=== PATIENT | female | born 1980 | race Caucasian/White ===

== ENCOUNTER 2018-05-21 15:48 | Outpatient (REF) | payer MEDICAID, SELFPAY ==
--- NOTE | 2018-05-21 15:20 | PAPFT_PTH ---
PATIENT: Cristina Johns LOC: [facility] U#:[id number] AGE/SX: 38/F ROOM: RE05/21/[address]: Malena Varghese : 1980 BED: DIS: 05/21/2018 SPEC #: [id number] RECD: 05/21/18 18:07 STATUS: NILDA REKatiana #: [id number] BEL: 05/21/18 15:[address]: Malena Varghese DEPT: [facility] Cytology RECD BY: Liseth Rodrigues ENTERED: 05/21/18 18:07 SP TYPE: PAPFT MARCE DR: Charlotte Woodruff APRN Tissues: 1 - CX/ENDOCX FOR PAP SMEARS Procedures: PAP THIN PREP/UVM Screening HPV DNA PROBE Comments: [id number]
== END 2018-05-21 16:08 ==
LOC: LBN 15:48
PROVIDERS: PCP Nurse Practitioner; Visit Provider Obstetrics & Gynecology Gynecology
DX: Z12.4 Encounter for screening for malignant neoplasm of cervix (principal); Z11.51 Encounter for screening for human papillomavirus (HPV)
CPT/HCPCS: 88142; 87624

== ENCOUNTER 2018-07-04 12:41 | Outpatient (REF) | payer MEDICAID, SELFPAY ==
--- NOTE | 2018-07-04 10:40 | ENDO_PTH ---
PATIENT: Cristina Johns LOC: [facility] U#:[id number] AGE/SX: 38/F ROOM: RE07/04/[address]: Malena Varghese : 1980 BED: DIS: 07/04/2018 SPEC #: [id number] RECD: 07/04/18 12:46 STATUS: NILDA REKatiana #: [id number] BEL: 07/04/18 10:[address]: Malena Varghese DEPT: Surgical Specimen RECD BY: Liseth Rodrigues ENTERED: 07/04/18 12:46 SP TYPE: Endo OTHR DR: Charlotte Woodruff APRN Tissues: 1 - ENDOCERVICAL BX/CURRETTE 2 - CERVICAL BIOPSY Procedures: GROSS AND MICRO LEVEL 4 Comments: [id number]
== END 2018-07-04 13:01 ==
LOC: LBN 12:41
PROVIDERS: PCP Nurse Practitioner; Visit Provider Obstetrics & Gynecology Gynecology
DX: N88.8 Other specified noninflammatory disorders of cervix uteri; R87.810 Cervical high risk human papillomavirus (HPV) DNA test positive
CPT/HCPCS: 88305

== ENCOUNTER 2019-01-16 08:53 | Outpatient (CLI) | payer MEDICAID, SELFPAY ==
--- NOTE | 2019-01-16 08:57 | MERGE_ITS ---
*[facility]* *[facility]* [address] [place] [address] Date of study: 01/16/2019 Transthoracic Echocardiography M-mode, complete 2D, complete spectral Doppler, and color Doppler *STUDY CONCLUSIONS* Summary: 1. Left ventricle: The cavity size was normal. Wall thickness was normal. Systolic function was normal. The estimated ejection fraction was 55-60%. Wall motion was normal; there were no regional wall motion abnormalities. 2. Right ventricle: The cavity size was normal. Wall thickness was normal. Systolic function was normal. *PATIENT PRESENTATION* Height: 167.6cm ((66in) ) S/D Pressure: 130 / 79 Weight: 93.9kg ((206.6lb) ) BSA: 2.13m^2 Test start time: 09:00 AM. Test stop time: 10:00 AM. PERFORMING Unknown PERFORMING [facility] ORDERING Charlotte Woodruff REFERRING Charlotte Woodruff LONG WINDER TENDER Goldie Figueredo *PROCEDURE DATA* Procedure information: This study was interpreted by [facility]. Pertinent images and digital data are archived for permanent storage and are available for subsequent review. No prior study was available for comparison. Study status: Routine. Transthoracic echocardiography. M-mode, complete 2D, complete spectral Doppler, and color Doppler. A Transthoracic Echocardiogram was performed. Scanning was performed from the parasternal, apical, subcostal, and suprasternal notch acoustic windows. Images were obtained using an Xpreso 2000 cardiac ultrasound machine. Study completion: The patient tolerated the procedure well. History: PMH: Palpitations. *CARDIAC ANATOMY* Left ventricle: The cavity size was normal. Wall thickness was normal. Systolic function was normal. The estimated ejection fraction was 55-60%. Wall motion was normal; there were no regional wall motion abnormalities. Aortic valve: Trileaflet; normal thickness leaflets. Mobility was not restricted. Doppler: Transvalvular velocity was within the normal range. There was no stenosis. There was no significant regurgitation. VTI ratio of LVOT to aortic valve: 0.84. Valve area (VTI): 2.2cm^2. Indexed valve area (VTI): 1cm^2/m^2. Peak velocity ratio of LVOT to aortic valve: 0.8. Valve area (Vmax): 2.1cm^2. Indexed valve area (Vmax): 1cm^2/m^2. Mean velocity ratio of LVOT to aortic valve: 0.74. Valve area (Vmean): 1.9cm^2. Indexed valve area (Vmean): 0.9cm^2/m^2. Mean gradient (S): 2.6mm Hg. Peak gradient (S): 4.6mm Hg. Aorta: Aortic root: The aortic root was normal in size. Ascending aorta: The ascending aorta was normal in size. Mitral valve: Structurally normal valve. Mobility was not restricted. Doppler: Transvalvular velocity was within the normal range. There was no evidence for stenosis. There was no significant regurgitation. Valve area by pressure half-time: 3.5cm^2. Indexed valve area by pressure half-time: 1.7cm^2/m^2. Left atrium: The atrium was normal in size. Right ventricle: The cavity size was normal. Wall thickness was normal. Systolic function was normal. Pulmonic valve: Poorly visualized. Doppler: Transvalvular velocity was within the normal range. There was no evidence for stenosis. There was mild regurgitation. Peak gradient (S): 2.3mm Hg. Tricuspid valve: Structurally normal valve. Doppler: Transvalvular velocity was within the normal range. There was no evidence for stenosis. There was trivial regurgitation. Pulmonary artery: Poorly visualized. Pulmonary systolic pressure was within the normal range. Right atrium: The atrium was normal in size. Pericardium: There was no pericardial effusion. Systemic veins: Inferior vena cava: The vessel was normal in size. Measurements Left ventricle Value Reference LV ID, ED, PLAX 4.8 cm 3.5 - 6.0 LV ID, ES, PLAX 3.4 cm 2.1 - 4.0 LV PW thickness, ED, PLAX 0.9 cm LV end-diastolic volume, 1-p A2C 103 ml LV ejection fraction, 1-p A2C 61 % LV end-diastolic volume, 1-p A4C 85 ml LV ejection fraction, 1-p A4C 55 % LV e', lateral 0.164 m/sec LV E/e', lateral 4 LV e', medial 0.082 m/sec LV E/e', medial 7 LV e', average 0.123 m/sec LV E/e', average 5 Ventricular septum Value Reference IVS thickness, ED, PLAX 0.9 cm LVOT Value Reference LVOT ID, A-P 1.8 cm LVOT area 2.6 cm^2 LVOT peak velocity, S 0.86 m/sec LVOT mean velocity, S 0.58 m/sec LVOT VTI, S 17.7 cm LVOT peak gradient, S 3 mm Hg LVOT mean gradient, S 1.5 mm Hg Stroke volume (SV), LVOT DP 47 ml Stroke index (SV/bsa), LVOT DP 22 ml/m^2 Aortic valve Value Reference Aortic valve peak velocity, S 1.1 m/sec Aortic valve mean velocity, S 0.78 m/sec Aortic valve VTI, S 21.0 cm Aortic mean gradient, S 2.6 mm Hg Aortic peak gradient, S 4.6 mm Hg VTI ratio, LVOT/AV 0.84 Aortic valve area, VTI 2.2 cm^2 Velocity ratio, peak, LVOT/AV 0.8 Aortic valve area, peak velocity 2.1 cm^2 Velocity ratio, mean, LVOT/AV 0.74 Aortic valve area, mean velocity 1.9 cm^2 Aortic valve area/bsa, mean velocity 0.9 cm^2/m^2 Aorta Value Reference Aortic root ID, ED 3.0 cm Ascending aorta ID, A-P, S 2.6 cm Left atrium Value Reference LA ID, A-P, ES 2.5 cm LA ID/bsa, A-P 1.2 cm/m^2 <=2.2 LA area, ES, A4C 16 cm^2 8.8 - 23.4 LA area, ES, A2C 15 cm^2 LA volume/bsa, S 21 ml/m^2 LA volume, ES, 2-p 40 ml LA volume/bsa, ES, 2-p 19 ml/m^2 LA/aortic root ratio 0.83 Mitral valve Value Reference Mitral E-wave peak velocity 0.58 m/sec Mitral A-wave peak velocity 0.42 m/sec Mitral deceleration time 215 ms 150 - 230 Mitral pressure half-time 62 ms Mitral E/A ratio, peak 1.38 Mitral valve area, PHT, DP 3.5 cm^2 Pulmonary arteries Value Reference PA pressure, S, DP 22 mm Hg <=30 Tricuspid valve Value Reference Tricuspid regurg peak velocity 1.9 m/sec Tricuspid peak RV-RA gradient 14.2 mm Hg Right atrium Value Reference RA area, ES, A4C 12.9 cm^2 8.3 - 19.5 Systemic veins Value Reference Estimated CVP 10 mm Hg Right ventricle Value Reference RV pressure, S, DP 24 mm Hg <=30 Pulmonic valve Value Reference Pulmonic peak gradient, S 2.3 mm Hg Legend: (L) and (H) anton values outside specified reference range. I have personally reviewed the images and have reviewed and edited the reported findings. Electronically signed by Lesvia Vázquez 01/17/2019 13:27
== END 2019-01-16 09:13 ==
PROVIDERS: PCP Nurse Practitioner; Visit Provider Nurse Practitioner
DX: R00.2 Palpitations (principal); I10 Essential (primary) hypertension
CPT/HCPCS: 93306

== ENCOUNTER 2019-03-25 01:50 | Outpatient (CLI) | payer MEDICAID, SELFPAY ==
--- NOTE | 2019-04-28 12:31 | CER_ITS ---
DATE OF DICTATION: April 27, 2019 [employer] MONITOR REPORT MONITOR IN PLACE: March 25 - April 23, 2019 Baseline rhythm sinus. No atrial fibrillation identified. 1% ventricular ectopy. 26 stable events recorded, no critical, no serious events recorded. Automatically-detected events: 20. All occurring during sinus rhythm +/- single PVC. No significant bradycardia. EVENT SUMMARY: Flutter or skipped beats noted multiple times during sinus rhythm +/- single PVC.
== END 2019-03-25 02:10 ==
PROVIDERS: PCP Nurse Practitioner; Visit Provider Nurse Practitioner
DX: R00.2 Palpitations (principal); I49.3 Ventricular premature depolarization
CPT/HCPCS: 93270

== ENCOUNTER 2020-01-27 09:45 | Outpatient (REF) | payer MEDICAID, SELFPAY ==
--- NOTE | 2020-01-27 09:10 | PAPFT_PTH ---
PATIENT: Cristina Johns LOC: [facility] U#:[id number] AGE/SX: 39/F ROOM: RE01/27/[address]: Fauzia Hilton NP : 1980 BED: DIS: 01/27/2020 SPEC #: [id number] RECD: 01/27/20 12:53 STATUS: NILDA REKatiana #: [id number] BEL: 01/27/20 09:[address]: Fauzia Hilton NP DEPT: [facility] Cytology RECD BY: Liseth Rodrigues ENTERED: 01/27/20 12:54 SP TYPE: PAPFT MARCE DR: Charlotte Woodruff APRN Tissues: 1 - CX/ENDOCX FOR PAP SMEARS Procedures: PAP THIN PREP/UVM Screening HPV DNA PROBE Comments: [id number]
== END 2020-01-27 10:05 ==
LOC: LBN 09:45
PROVIDERS: PCP Nurse Practitioner; Visit Provider Nurse Practitioner Women's Health
DX: Z12.4 Encounter for screening for malignant neoplasm of cervix (principal); Z11.51 Encounter for screening for human papillomavirus (HPV)
CPT/HCPCS: 88142; 87624

== ENCOUNTER 2020-03-08 08:50 | Outpatient (CLI) | payer MEDICAID, SELFPAY ==
[2020-03-10 15:35] LABS: SARS-CoV-2 RNA Undetected (Undetected)
== END 2020-03-08 09:10 ==
PROVIDERS: PCP Nurse Practitioner; Visit Provider Nurse Practitioner Family
DX: Z11.59 Encounter for screening for other viral diseases (principal)
CPT/HCPCS: U0003

== ENCOUNTER 2021-02-01 09:48 | Outpatient (REF) | payer MEDICAID, SELFPAY ==
--- NOTE | 2021-02-01 08:45 | PAPFT_PTH ---
PATIENT: Cristina Johns [facility] U[id number] AGE/SX: 40/F ROOM: RE02/01/[address]: Fauzia Hilton NP : 1980 BED: DIS: 02/01/2021 SPEC #: [id number] RECD: 02/01/21 12:48 STATUS: NILDA COVARRUBIAS #: [id number] BEL: 02/01/21 08:[address]: Fauzia Hilton NP DEPT: [facility] Cytology RECD BY: Liseth Rodrigues ENTERED: 02/01/21 12:49 SP TYPE: PAPFT OTHR DR: Charlotte Woodruff APRN Tissues: 1 - CX/ENDOCX FOR PAP SMEARS Procedures: PAP THIN PREP/UVM Screening HPV DNA PROBE Comments: [id number]
== END 2021-02-01 09:49 | disposition home or self-care (01) ==
LOC: NCHCN 09:48
PROVIDERS: PCP Nurse Practitioner; Visit Provider Nurse Practitioner Women's Health
DX: Z12.4 Encounter for screening for malignant neoplasm of cervix (principal); Z11.51 Encounter for screening for human papillomavirus (HPV); Z87.42 Personal history of other diseases of the female genital tract
CPT/HCPCS: 88142; 87624

== ENCOUNTER 2021-02-04 22:10 | Emergency (ER) | payer MEDICAID, SELFPAY ==
--- NOTE | 2021-02-04 22:00 | RT.EKG_ITS ---
APPROVED REPORT Exam: Resting ECG Reason for Exam: Syncope Patient Location: E HR:85 bpm ECG Measurements Heart Rate 85 AXIS PA 184 P 50 QRSd 118 QRS 47 QT 385 T 46 QTc 456 Conclusion Sinus rhythm...normal P axis, V-rate 60- 99 Incomplete right bundle branch block...QRSd >112, terminal axis(90,270) Physician: no stemi
[2021-02-04 22:17] VITALS: BP 128/84; PULSE 84; RESP 15; TEMP 36.4; O2SAT 95
--- NOTE | 2021-02-04 22:24 | W.ED.GENAD ---
Discharge Plan Disposition Patient Disposition: HOME Condition: Stable Discharge Details Clinical Impression: Syncope Primary Care Provider: Charlotte Woodruff ED Provider: Josseline Roberson Home Meds and New Rx's Prescriptions: Continued omeprazole 40 mg capsule,delayed release(DR/EC) 40 mg PO DAILY PRNRF: 0 propranolol 10 mg tablet 10 mg PO BID PRN (Reason: palpitations) Qty: 60 RF: 4 albuterol sulfate 90 mcg/actuation HFA aerosol inhaler 2 puff IH QID PRN (Reason: shortness of breath or wheezing) Qty: 18 RF: 3 bupropion HCl [Wellbutrin SR] 150 mg tablet sustained-release 12 hr 150 mg PO DAILY Qty: 90 RF: 3 sertraline [Zoloft] 100 mg tablet 150 mg PO DAILY Qty: 135 RF: 3 lorazepam 0.5 mg tablet 0.5 mg PO BID PRN (Reason: anxiety) Qty: 30 RF: 2 Discharge Instructions Instructions: Syncope (ED) Additional Instructions: Follow up with primary care provider in 3-5 days. Return to ED sooner if any worsening or concerns. Increase oral fluids. Return to the ED for any chest pain, repeat syncopal or fainting episodes, shortness of breath, sweating nausea vomiting, fever or any concerns. Referrals: Charlotte Woodruff SOLAR POOL HEATING INSTALLER [Primary Care Provider] - Medical Decision Making 40-year-old female presents to the ER via EMS status post syncopal episode while at a local restaurant earlier tonight. Patient she remembers getting weak and hot standing up to take off her sweater and waking up on the floor. She [facility] [place] [facility] She did have 2 beers. She does endorse history of anxiety and depression and did take her normal medications today she denies any drugs. She is a non-smoker. She denies any chest pain, shortness of breath, headache no neck pain no back pain. She states she was nauseous and had a headache earlier today but that has since resolved. She has no other complaints or associated symptoms at this time At this time cardiac work-up ordered including basic labs, EKG and troponin I liter normal saline. EKG was reviewed by Dr. Keny Castrejon DO ER attending, please see his official report and review, no STEMI. No old EKG available for review Patient work-up has been largely unremarkable troponin is within normal limits. No evidence for leukocytosis sodium 139 potassium 3.2 chloride 103 glucose 142. Patient reevaluation she has no complaints at this time. She has received approximately 500 cc normal Orthostatics completed by staff midwife/apprenticeship director. Heart rate goes up slightly to 106 no significant drop in blood pressure. Will continue to infuse the rest of the liter of saline and plan for discharge home. Patient verbalized understanding and is in agreement with this plan. I do suspect dehydration at this point. Instructed to follow-up with PCP increase oral fluids. Patient yulissa hemodynamically stable throughout stay alert and oriented no focal neuro deficits. This text was generated using Agile Systemsation system, please disregard any oddities of phrase or misspellings. HPI General Mode of arrival: EMS. Date/Time Provider Initiated Documentation: 02/04/21 22:11. Limitations to Documentation: no limitations. Information obtained by: patient, EMS and RN notes reviewed. HPI Narrative: 40-year-old female presents to the ER via EMS status post syncopal episode while at a local restaurant earlier tonight. Patient she remembers getting weak and hot standing up to take off her sweater and waking up on the floor. She denies any previous episodes prior to tonight. She did have 2 beers. She does endorse history of anxiety and depression and did take her normal medications today she denies any drugs. She is a non-smoker. She denies any chest pain, shortness of breath, headache no neck pain no back pain. She states she was nauseous and had a headache earlier today but that has since resolved. She has no other complaints or associated symptoms at this time Related Data Home Medications Medication Instructions Recorded Confirmed albuterol sulfate 90 mcg/actuation 2 puff IH QID PRN #18 gm 10/20/18 01/27/20 aerosol inhaler propranolol 10 mg tablet 10 mg PO BID PRN #60 tab-cap 01/08/19 01/27/20 bupropion HCl 150 mg tablet,12 hr 150 mg PO DAILY #90 tab-cap 03/03/20 sustained-release sertraline 100 mg tablet 150 mg PO DAILY #135 tab-cap 07/27/20 lorazepam 0.5 mg tablet 0.5 mg PO BID PRN #30 tab-cap 10/17/20 omeprazole 40 mg capsule,delayed 40 mg PO DAILY PRN tab-cap 02/01/21 release Previous Rx's Medication Instructions Recorded albuterol sulfate 90 mcg/actuation 2 puff IH QID PRN #18 gm 10/20/18 aerosol inhaler propranolol 10 mg tablet 10 mg PO BID PRN #60 tab-cap 01/08/19 bupropion HCl 150 mg tablet,12 hr 150 mg PO DAILY #90 tab-cap 03/03/20 sustained-release sertraline 100 mg tablet 150 mg PO DAILY #135 tab-cap 07/27/20 lorazepam 0.5 mg tablet 0.5 mg PO BID PRN #30 tab-cap 10/17/20 Allergies Allergy/AdvReac Type Severity Reaction Status Date / Time sulfamethoxazole Allergy Intermediate Swelling, Unverified 02/01/21 08:28 [From Bactrim] itchy rash trimethoprim [From Bactrim] Allergy Intermediate Swelling, Unverified 02/01/21 08:28 itchy rash General Stated Complaint: Dizzy/Sync MITCHELL: 3 Review of Systems Narrative: Constitutional: Negative for weight loss, alert and oriented, well groomed, normal body habitus, appears comfortable. HEENT: Denies blurry vision, nasal discharge, sore throat, trouble swallowing. Reports headache earlier today none upon arrival. Chest: Denies chest pain, palpitations, irregular rhythm, hypertension. Respiratory: Denies Shortness of breath, cough, hemoptysis. GI: Denies abdominal pain, vomiting, diarrhea, constipation. Positive nausea : Denies dysuria, hematuria, flank pain, rectal bleeding. Neuro: Denies blurry vision, weakness, syncope, or facial numbness. Positive syncopal episode prior to arrival. Hematologic: Denies easy bruising, intolerance to heat or cold, hair loss. [facility] Medical History Depression with anxiety/panic attack component. 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 2020 -HPV Family History Father Hyperlipidemia Hypertension Brother No problems noted. Maternal Grandmother Diabetes Paternal Grandmother Colon cancer Social History Smoking/Tobacco Use Status: Never Smoking risk assessment performed?: Yes Alcohol Intake: current Alcohol Intake frequency: a few times a month Substance use type: does not use Household members: children and other Details: Sae Garcia Number of Children: 3 current occupation: [employer] Pets and animals: Yes (Dog. Sylvester) Sexually active: Yes (condoms for BC.) What type of physical activity do you participate in: other Details: sylvia and yoga Frequency: 5-6 times per week Do you feel safe at home: Yes Do you feel safe in your relationship?: Yes Additional Social history: JESS Burton. Works at [employer] Female Reproductive History Menstrual control method: condoms History History 3 Para 3 Hx # Term Pregnancies 3 Multiple births Hx # Pregnancies Ectopic pregnancies AB induced Hx Number of Living Children 3 AB spontaneous Exam Narrative Exam Narrative: Constitutional: Alert and oriented x3. Appears stated age. Normal body habitus. Head: Normocephalic, no trauma. Eyes: Pupils PERRLA, Red reflex noted, EOM's intact. Eyelids symmetrical without lesions, discharge, or swelling. ENT: Bilateral TM's WNL, External ear normal to inspection, no mastoid TTP, swelling, or erythema, Nasal turbinates WNL, no nasal discharge. Normal dentition, Posterior pharynx WNL, no exudate. Chest: RRR, Normal S1, S2, distal pulses intact. Resp: Lungs clear to auscultation bilaterally, no wheezes, rales, or rhonchi. Abdomen: Soft, nondistended, nontender to palpation all 4 quadrants. Musculoskeletal: Unable to assess gait 5/5 strength to all four extremities. Skin: No suspicious rashes or lesions. Capillary refill less than 2 sec. Neurologic: Cranial nerves II-XII intact. Alert and oriented x 3. DTR's intact. Hematologic/Lymphatic: No ecchymosis, no lymphadenopathy. Course Vital Signs Vital signs: Vital Signs Temperature 36.4 C L 02/04/21 22:17 Pulse 84 02/04/21 22:17 Respiratory Rate 15 02/04/21 22:17 Blood Pressure 128/84 02/04/21 22:17 Pulse Oximetry 95 02/04/21 22:17 Temperature 36.4 C L 02/04/21 22:17 Temperature Source Tympanic 02/04/21 22:17 Pulse 84 02/04/21 22:17 Respiratory Rate 15 02/04/21 22:17 Blood Pressure 128/84 02/04/21 22:17 Blood Pressure Position Standing 02/04/21 22:17 Pulse Oximetry 95 02/04/21 22:17 Oxygen Delivery Method Room Air 02/04/21 22:17 Oxygen Flow Rate 0 02/04/21 22:17 Pain Level 0 02/04/21 22:17
[2021-02-04] MEDS: Normal Saline 1,000 ML 1000 ML IV (22:56)
[2021-02-04 22:58] LABS: Abs Immature Grans 0.02 10^3/uL (0.0-0.06); Absolute Basophil Count 0.05 10^3/uL (0.0-0.2); Absolute Lymphocyte Count 2.76 10^3/uL (1.2-3.4); Absolute Monocyte Count 0.69 10^3/uL (0.1-0.8); Basophils % 0.6; Eosinophils % 2.3; HGB 12.4 g/dL (11.2-15.7); Immature Grans % 0.2; Lymphocytes % 31.3; MCH 28.3 pg (27.0-33.0); MCHC 32.6 % (32.0-36.0); MCV 86.8 fL (80-95); MPV 10.1 fL (8.0-11.0); Monocytes % 7.8; Neutrophils % 57.8; Nucleated RBC 0 %; Platelet Count 248 10^3/uL (130-400); RBC 4.38 10^6/uL (3.93-5.22); RDW 13.2 % (11.7-14.6); RDW-SD 41.2 fL; WBC 8.82 10^3/uL (4.4-10.8)
[2021-02-04 23:17] LABS: ALT 25 U/L (14-59); AST 21 U/L (15-37); Albumin 3.7 g/dL (3.4-5.0); Alkaline Phosphatase 77 U/L (46-116); Anion Gap 11.8 mmol/L (3-11); BUN 9 mg/dL (7-18); Bilirubin, Total 0.4 mg/dL (0.2-1.0); CO2 24.2 mmol/L (21.0-32.0); CREATININE 0.9 mg/dL (0.55-1.02); Calcium 9.1 mg/dL (8.5-10.1); Chloride 103 mmol/L (98-107); Glucose 142 mg/dL (74-106); Potassium 3.2 mmol/L (3.5-5.1); Sodium 139 mmol/L (136-145); Total Protein 7.5 g/dL (6.4-8.2); Troponin I < 0.05 ng/mL (<0.06)
[2021-02-04 23:34] VITALS: BP 126/85; BP 136/79; BP 140/82; PULSE 107; PULSE 88; PULSE 94
== END 2021-02-05 00:05 | disposition home or self-care (01) ==
PROVIDERS: Emergency Provider Registered Nurse Emergency; PCP Nurse Practitioner
DX: R55 Syncope and collapse (principal)
CPT/HCPCS: 36415; 80053; 93005; 96360; 99284; 84484; 85025; 93010

== ENCOUNTER 2021-02-10 00:58 | Outpatient (RCR) | payer MEDICAID, SELFPAY ==
--- NOTE | 2021-02-10 13:00 | HOLTER_ITS ---
APPROVED REPORT Conclusion This is a 24-hour monitor ordered for indication of syncope. The patient was in normal sinus rhythm recording with an average heart rate of 95 bpm. There are no episodes of ventricular tachycardia nor any episodes of supraventricular tachycardia. There were rare PVCs and no PACs. There were no episodes of atrial fibrillation, no pauses greater than 3 seconds and no evidence of hi gh degree heart block. There was 1 patient triggered event reported as shortness of breath x10 seconds. The patient was in normal sinus rhythm at this time without any ectopy.
== END 2021-03-04 23:59 | disposition home or self-care (01) ==
LOC: RT 00:58
PROVIDERS: PCP Nurse Practitioner; Visit Provider Nurse Practitioner
DX: R55 Syncope and collapse (principal)
CPT/HCPCS: 93225; 93226

== ENCOUNTER 2021-06-05 08:43 | Outpatient (REF) | payer MEDICAID, SELFPAY ==
[2021-06-05 14:32] LABS: HCT 39.5 % (36.0-46.0); HGB 12.6 g/dL (11.2-15.7); MCH 27.6 pg (27.0-33.0); MCHC 31.9 % (32.0-36.0); MCV 86.6 fL (80-95); MPV 10.8 fL (8.0-11.0); Platelet Count 286 10^3/uL (130-400); RBC 4.56 10^6/uL (3.93-5.22); RDW 13.3 % (11.7-14.6); RDW-SD 41.4 fL; WBC 8.16 10^3/uL (4.4-10.8)
[2021-06-05 14:40] LABS: ALT 30 U/L (14-59); AST 18 U/L (15-37); Albumin 3.9 g/dL (3.4-5.0); Alkaline Phosphatase 81 U/L (46-116); Anion Gap 10.1 mmol/L (3-11); BUN 12 mg/dL (7-18); Bilirubin, Total 0.3 mg/dL (0.2-1.0); CO2 25.9 mmol/L (21.0-32.0); CREATININE 0.8 mg/dL (0.55-1.02); Calcium 8.8 mg/dL (8.5-10.1); Calculated LDL 116 mg/dL (<100); Chloride 104 mmol/L (98-107); Cholesterol 195 mg/dL (<200); Glucose 95 mg/dL (74-106); HDL Cholesterol 43 mg/dL (40-60); Potassium 4.3 mmol/L (3.5-5.1); Sodium 140 mmol/L (136-145); Total Protein 7.1 g/dL (6.4-8.2); Triglyceride 181 mg/dL (<150)
[2021-06-05 14:56] LABS: Hemoglobin A1C 5.4 % (<5.7)
== END 2021-06-05 08:44 | disposition home or self-care (01) ==
LOC: LBN 08:43
PROVIDERS: PCP Nurse Practitioner; Referring Provider Nurse Practitioner; Visit Provider Nurse Practitioner
DX: Z13.220 Encounter for screening for lipoid disorders; E66.3 Overweight; Z83.3 Family history of diabetes mellitus; E11.9 Type 2 diabetes mellitus without complications
CPT/HCPCS: 80053; 80061; 85027; 83036

== ENCOUNTER 2021-06-06 09:10 | Outpatient (CLI) | payer MEDICAID, SELFPAY ==
[2021-06-07 05:39] LABS: COVID-19 RT-PCR UVMMC Result Positive (Negative)
== END 2021-06-06 09:11 | disposition home or self-care (01) ==
PROVIDERS: PCP Nurse Practitioner; Visit Provider Nurse Practitioner
DX: Z20.822 Contact with and (suspected) exposure to COVID-19 (principal)
CPT/HCPCS: U0003

== ENCOUNTER 2021-06-08 02:32 | Outpatient (CLI) | payer MEDICAID, SELFPAY ==
[2021-06-08 11:11] VITALS: BP 108/74; PULSE 81; RESP 16; TEMP 37.7; O2SAT 97
[2021-06-08] MEDS: Normal Saline Flush 10 ML SYR IVP (11:20)
[2021-06-08] MEDS: Normal Saline 500 ML 30 ML IV (11:20)
[2021-06-08 11:25] VITALS: BP 135/87; PULSE 105; RESP 18; TEMP 36.9; O2SAT 97
[2021-06-08 11:37] VITALS: BP 108/74; PULSE 82; RESP 18; TEMP 36.9; O2SAT 97
[2021-06-08 12:00] VITALS: BP 124/78; PULSE 78; TEMP 37.2; O2SAT 97
[2021-06-08 12:29] VITALS: BP 121/82; PULSE 86; TEMP 36.9; O2SAT 98
== END 2021-06-08 02:33 | disposition home or self-care (01) ==
LOC: INF 02:35
PROVIDERS: PCP Nurse Practitioner; Visit Provider Family Medicine
DX: U07.1 COVID-19 (principal)
CPT/HCPCS: 96365

== ENCOUNTER 2021-09-05 00:06 | Outpatient (CLI) | payer MEDICAID, SELFPAY ==
--- NOTE | 2021-09-05 08:00 | ETT_ITS ---
APPROVED REPORT Exam: Exercise Treadmill Patient Location: Out-Patient Room/Bed: Stress Nurse: Bette Nieto RN Ordering Provider:TEMITOPE ELI, Contact Number: [phone] BMI: 35.82 Baseline Rhythm: Sinus Rhythm Comment: Incomplete RBBB Medical History Medical History: Hyperlipidemia, obesity, depression Cardiac Medications: Albuterol-sulfate Allergies: Trimethoprim, sulfamethoxazole Cardiac Risk Factors: Hyperlipidemia, obesity, family hx Previous Cardiac Procedures: None Pretest Chest Pain Characteristics: None Exercise History: Indeterminate Physical Disabilities: None Lung Sounds: Clear to auscultation Heart Sounds: Regular Stress Test Details Test: Exercise stress testing was performed using a Lex protocol. Rest Stress HR Resting HR Supine: 72 bpm Max Heart Rate (APMHR): 181 bpm Resting HR Standin bpm Target HR (85% APMHR): 153 bpm Max HR Achieved: 167 bpm % of APMHR: 92 Recovery HR: 90 bpm HR response to stress: Abnormal HR response to stress BP Resting BP Supine: 124/76 mmHg Resting BP Standin/80 mmHg Max BP: 182/72 mmHg Recovery BP: 128/60 mmHg BP response to stress: Normal blood pressure response to stress. ECG Resting ECG: Sinus Rhythm, incomplete RBBB Ectopy: None Stress ECG: Sinus Tachycardia, incomplete RBBB ST Change: No significant ST segment changes noted Arrhythmia: None Recovery ECG: Sinus Rhythm, incomplete RBBB Recovery ST Change: No significant ST segment changes noted Recovery Arrhythmia: None Clinical Reason for Termination: Fatigue, Dyspnea Stress Symptoms: General Fatigue, Dyspnea Exercise duration: 9 min03 sec Highest Stage Reached: Stage 4: 4.2 mph at 16% grade. Exercise capacity: 10.25 METs French Treadmill Score: 6.8 Rate Pressure Product: 07103 Stress ECG Conclusion 1. Resting electrocardiogram was within normal limits 2. Patient exercised on the Lex protocol and completed a workload of 10.25 METS, stopping due to fa tigue 3. Normal heart rate and blood pressure response to exercise. The patient achieved 92% of predicted heart rate for age 4. There was no electrocardiographic evidence of myocardial ischemia 5. There were no significant dysrhythmias French Treadmill Score is 6.8 which is Low risk. Stress Test Summary STAGE Time (mins) Speed (mph) Grade (%) HR BP SYMPTOMS METS Supine 72 124/76 Standing 87 132/80 SpO2 98% 1 3 1.7 10 130 154/72 Mild SOB, SpO2 97% 4.6 2 6 2.5 12 156 178/70 Moderate SOB, SpO2 95% 7 3 9 3.4 14 167 182/72 Moderate- severe SOB, SpO2 95% 10.2 4 12 4.2 16 167 Moderate- severe SOB, SpO2 95% 12.9 1 min recovery 143 168/70 Mild SOB, SpO2 96% 3 min recovery 93 178/74 Mild SOB, SpO2 97% 6 min recovery 90 128/60 SOB resolved, SpO2 97%
== END 2021-09-05 00:26 ==
PROVIDERS: PCP Nurse Practitioner; Visit Provider Nurse Practitioner
DX: R06.09 Other forms of dyspnea (principal); I45.19 Other right bundle-branch block; E78.5 Hyperlipidemia, unspecified; E66.9 Obesity, unspecified; Z82.49 Family history of ischemic heart disease and other diseases of the circulatory system
CPT/HCPCS: 93017

== ENCOUNTER 2021-09-07 16:22 | Outpatient (CLI) | payer MEDICAID, SELFPAY ==
--- NOTE | 2021-09-07 11:30 | DI.CT_ITS ---
Exam(s) CT CHEST PE CTA EXAM: CT CHEST PE CTA CLINICAL HISTORY: chest pain r07.9. TECHNIQUE: Imaging Protocol: Axial CT angiography was performed with multi-slice acquisition and mu lti-planar and/or 3D reconstructions. CONTRAST MATERIAL: Intravenous: Omnipaque 350 Contrast volume:structured data in ml COMPARISON: No exams were available for comparison FINDINGS: CT angiography of the chest was performed with intravenous infusion of 100 cc of Omnipaque 350. The lungs are clear. No pleural effusion. Tracheobronchial tree appears intact. No evidence of pulmonary embolic disease. Thoracic aorta is of normal diameter, no thoracic aortic an eurysm or dissection, major branch vessels appear intact. No mediastinal or hilar adenopathy. Images obtained through the upper abdomen show unremarkable appearance of the visualized portions of the liver, spleen, pancreas, adrenals, and kidneys. IMPRESSION: Negative CT angiogram of the chest. No evidence of pulmonary embolic disease. RADIATION DOSE DELIVERED: 454.09mGy.cm Total DLP 454.09mGy.cm Total DLP CTDIvol DATA REPOSITORY: All CT scans at this facility are submitted to the National Radiology Data Registry (NRDR) Dose Index Registry (DIR) with the [employer] (ACR). RADIATION OPTIMIZATION: All CT scans at this facility use at least one of these dose optimization te chniques: automated exposure control; mA and/or kV adjustment per patient size (includes targeted exa ms where dose is matched to clinical indication); or iterative reconstruction.
[2021-09-07] MEDS: Omnipaque 350 MG/ML 100 ML BTL IJ (11:55)
== END 2021-09-07 16:42 ==
PROVIDERS: PCP Nurse Practitioner; Visit Provider Nurse Practitioner
DX: R07.89 Other chest pain (principal)
CPT/HCPCS: 71275; J3490

== ENCOUNTER → 2021-12-25 13:35 | Outpatient (CLI) | payer MEDICAID, SELFPAY ==
--- NOTE | 2021-12-25 10:23 | DI.CT_ITS ---
Exam(s) CT HEAD WO EXAM: CT HEAD WO CLINICAL HISTORY: dizzy, slight balance issue for weeks R26.89 ABNL GAIT AND MOBILITY R42. TECHNIQUE: Imaging Protocol: Axial computed tomography images with coronal and sagittal reformatted images were created and reviewed COMPARISON: CT HEAD WITHOUT CONTRAST from 08/01/2017 FINDINGS: Ventricles and Extra axial spaces: Normal in size and morphology for the patient's age. Hemorrhage: None. Cerebral parenchyma: Normal. Midline shift: None. Brainstem/Cerebellum: Normal. Calvarium: Normal. Visualized Paranasal sinuses/Mastoids: Clear. Soft Tissues: Unremarkable. IMPRESSION: No acute intracranial process. RADIATION DOSE DELIVERED: 745.91mGy.cm Total DLP DATA REPOSITORY: All CT scans at this facility are submitted to the National Radiology Data Registry (NRDR) Dose Index Registry (DIR) with the [employer] (ACR). RADIATION OPTIMIZATION: All CT scans at this facility use at least one of these dose optimization te chniques: automated exposure control; mA and/or kV adjustment per patient size (includes targeted exa ms where dose is matched to clinical indication); or iterative reconstruction.
== END ==
PROVIDERS: PCP Nurse Practitioner; Visit Provider Nurse Practitioner
DX: R42 Dizziness and giddiness (principal); R26.89 Other abnormalities of gait and mobility
CPT/HCPCS: 70450

== ENCOUNTER 2022-03-15 08:44 | Outpatient (REF) | payer MEDICAID, SELFPAY ==
[2022-03-15 15:07] LABS: Calculated LDL 108 mg/dL (<100); Cholesterol 164 mg/dL (<200); HDL Cholesterol 42 mg/dL (40-60); Triglyceride 71 mg/dL (<150)
[2022-03-16 10:30] LABS: HIV-1/2 Ag & Ab Screen Negative (Negative)
[2022-03-16 10:34] LABS: Hepatitis C Ab w Rflx HCV PCR Negative (Negative)
== END 2022-03-15 08:45 | disposition home or self-care (01) ==
LOC: LBN 08:44
PROVIDERS: PCP Nurse Practitioner; Visit Provider Nurse Practitioner
DX: E78.5 Hyperlipidemia, unspecified (principal); Z11.59 Encounter for screening for other viral diseases; Z11.4 Encounter for screening for human immunodeficiency virus [HIV]
CPT/HCPCS: 80061; 86803; 87389

== ENCOUNTER → 2022-05-16 01:46 | Outpatient (CLI) | payer MEDICAID, SELFPAY ==
--- NOTE | 2022-05-16 09:39 | DI.MAMMO_ITS ---
Exam(s) MAMMO SCREENING EXAM: MAMMO SCREENING CLINICAL HISTORY: screening,Z12.39 TECHNIQUE: Mammograms were interpreted according to the usual protocol including computer analysis w [employer] CAD system, tomosynthesis and C-view imaging. COMPARISON: FINDINGS: The breasts are of moderate density with fairly symmetrical distribution of fibroglandular tissue. N o dominant mass or clumped microcalcification is identified in either breast. Today's examination is a baseline examination. IMPRESSION: No specific evidence of malignancy at this time. Routine screening examinations are suggested at yea rly intervals according to the ACR guidelines. BI-RADS Category 1 - Negative Breast Density - Category B - Scattered areas of fibroglandular density
== END ==
PROVIDERS: PCP Nurse Practitioner; Visit Provider Nurse Practitioner
DX: Z12.31 Encounter for screening mammogram for malignant neoplasm of breast (principal)
CPT/HCPCS: 77063; 77067

== ENCOUNTER 2022-09-20 08:22 | Outpatient (CLI) | payer MEDICAID, SELFPAY ==
--- NOTE | 2022-09-20 08:15 | RT.EKG_ITS ---
APPROVED REPORT Exam: Resting ECG Reason for Exam: dizzy Patient Location: O HR:65 bpm ECG Measurements Heart Rate 65 AXIS KS 160 P 49 QRSd 117 QRS 64 QT 424 T 45 QTc 441 Conclusion Sinus rhythm...normal P axis, V-rate 50- 99 Incomplete right bundle branch block...QRSd >112, terminal axis(90,270) Low voltage, precordial leads...precordial leads <1.0mV
== END 2022-09-20 08:23 | disposition home or self-care (01) ==
LOC: DI.KIM 08:23
PROVIDERS: PCP Nurse Practitioner; Visit Provider Nurse Practitioner
DX: R42 Dizziness and giddiness (principal); R94.31 Abnormal electrocardiogram [ECG] [EKG]; I45.19 Other right bundle-branch block
CPT/HCPCS: 93010

== ENCOUNTER 2022-09-20 10:20 | Outpatient (REF) | payer MEDICAID, SELFPAY ==
[2022-09-20 15:39] LABS: HCT 37.8 % (36.0-46.0); HGB 12.2 g/dL (11.2-15.7); MCHC 32.3 % (32.0-36.0); MCV 87 fL (80-95); MPV 10.4 fL (8.0-11.0); Platelet Count 250 10^3/uL (130-400); RBC 4.35 10^6/uL (3.93-5.22); RDW 12.5 % (11.7-14.6); RDW-SD 39.8 fL; WBC 6.93 10^3/uL (4.4-10.8)
[2022-09-20 16:50] LABS: ALT 20 U/L (14-59); AST 14 U/L (15-37); Alkaline Phosphatase 54 U/L (46-116); BUN 13 mg/dL (7-18); Bilirubin, Total 0.5 mg/dL (0.2-1.0); CREATININE 0.7 mg/dL (0.55-1.02); Chloride 102 mmol/L (98-107); Estimated GFR 112.05 (mL/min/1.73m2); Glucose 93 mg/dL (74-106); Potassium 3.7 mmol/L (3.5-5.1); Sodium 138 mmol/L (136-145); TSH (W/Ref FT4) 1.46 uIU/mL (0.36-3.74); Total Protein 7.3 g/dL (6.4-8.2)
== END 2022-09-20 10:21 | disposition home or self-care (01) ==
LOC: LBN 10:20
PROVIDERS: PCP Nurse Practitioner; Referring Provider Nurse Practitioner; Visit Provider Nurse Practitioner
DX: R42 Dizziness and giddiness (principal); F41.8 Other specified anxiety disorders; R51.9 Headache, unspecified
CPT/HCPCS: 80053; 85027; 84443

== ENCOUNTER 2022-10-17 01:38 | Outpatient (CLI) | payer MEDICAID, SELFPAY ==
--- NOTE | 2022-10-17 08:10 | DI.CT_ITS ---
Exam(s) CT HEAD WO EXAM: CT HEAD WO CLINICAL HISTORY: intermittent headache, dizzy,r51.9,r42. TECHNIQUE: Imaging Protocol: Axial computed tomography images with coronal and sagittal reformatted images were created and reviewed COMPARISON: CT CT HEAD WO from 12/25/2021 FINDINGS: Ventricles and Extra axial spaces: Normal in size and morphology for the patient's age. Hemorrhage: None. Cerebral parenchyma: Normal. Midline shift: None. Brainstem/Cerebellum: Normal. Calvarium: Normal. Visualized Paranasal sinuses/Mastoids: Clear. Soft Tissues: Unremarkable. IMPRESSION: No acute intracranial process. RADIATION DOSE DELIVERED: 749.04mGy.cm Total DLP DATA REPOSITORY: All CT scans at this facility are submitted to the National Radiology Data Registry (NRDR) Dose Index Registry (DIR) with the [employer] (ACR). RADIATION OPTIMIZATION: All CT scans at this facility use at least one of these dose optimization te chniques: automated exposure control; mA and/or kV adjustment per patient size (includes targeted exa ms where dose is matched to clinical indication); or iterative reconstruction.
== END 2022-10-17 01:58 ==
LOC: DI 01:39
PROVIDERS: PCP Nurse Practitioner; Visit Provider Nurse Practitioner
DX: R42 Dizziness and giddiness (principal); R51.9 Headache, unspecified
CPT/HCPCS: 70450

== ENCOUNTER → 2023-05-22 03:25 | Outpatient (CLI) | payer MEDICAID, SELFPAY ==
--- NOTE | 2023-05-22 06:30 | DI.MAMMO_ITS ---
Exam(s) MAMMO SCREENING EXAM: MAMMO SCREENING CLINICAL HISTORY: screening,Z12.39 TECHNIQUE: Bilateral full field digital CC and MLO mammographic images were obtained with 3D tomosyn thesis and utilizing computer aided detection (CAD). COMPARISON: Available for comparison. FINDINGS: Masses/Architectural Distortion: None seen. Microcalcifications: No suspicious pleomorphic-type are seen. Skin Thickening/Nipple Retraction: None. IMPRESSION: 1. No significant interval change with no specific features of malignancy noted. 2. Unless there is more urgent need, screening mammography is recommended, as per [employer] guidelines. BI-RADS Category 1 - Negative Breast Density - Category B - Scattered areas of fibroglandular density Breast density category C or D implies that the patient has dense breast tissue. Dense breast tissue is very common and is not abnormal but dense breast tissue can make it harder to find cancer on a ma mmogram. Also, dense breast tissue may increase their breast cancer risk. This information about the result of the mammogram report was provided to the patient to raise their awareness. Use this report when you speak with the patient about their risks for breast cancer, which includes their family hist ory. At that time, you may recommend for more screening tests (Ultrasound or MRI) as they might be us eful based on their risk. A negative radiographic report should not delay biopsy if a dominant or clinically suspicious mass is present. Up to ten percent of cancers are not identified on mammography. A negative report may reinforce clinical impression. Adenosis and dense breasts may obscure an underlying neoplasm. False positive reports average 6 to 10%. Patient will receive a letter notifying them of these results.
== END ==
PROVIDERS: PCP Nurse Practitioner; Visit Provider Nurse Practitioner
DX: Z12.31 Encounter for screening mammogram for malignant neoplasm of breast (principal); R92.323 Mammographic fibroglandular density, bilateral breasts
CPT/HCPCS: 77063; 77067

== ENCOUNTER 2023-11-06 15:40 | Outpatient (CLI) | payer MEDICAID, SELFPAY ==
--- NOTE | 2023-11-06 09:45 | DI.RAD_ITS ---
Exam(s) XR SHOULDER LT COMPLETE 2+V EXAM: XR SHOULDER LT COMPLETE 2+V CLINICAL HISTORY: LEFT SHOULDER PAIN. TECHNIQUE: 2D digital imaging was performed of the left shoulder. Two images were obtained. Grashe y and axillary views were obtained. COMPARISON: No exams were available for comparison FINDINGS: BONES: No acute fracture is present. No bony destructive lesion is seen. JOINTS: No dislocation present. There may be mild degenerative changes seen at the acromioclavicular joint. The glenohumeral joint is well maintained. SOFT TISSUE: The visualized lungs are clear. IMPRESSION: Mild degenerative changes seen at the acromioclavicular joint. DATA REPOSITORY: RADIATION DOSE DELIVERED:
== END 2023-11-06 15:41 | disposition home or self-care (01) ==
LOC: DIORS 15:40
PROVIDERS: PCP Nurse Practitioner; Visit Provider Student in an Organized Health Care Education/Training Program
DX: M25.512 Pain in left shoulder (principal)
CPT/HCPCS: 73030

== ENCOUNTER → 2023-11-27 04:18 | Outpatient (CLI) | payer MEDICAID, SELFPAY ==
--- NOTE | 2023-11-27 11:05 | DI.MRI_ITS ---
Exam(s) MR UPPER JOINT LT WO EXAM: MR UPPER JOINT LT WO CLINICAL HISTORY: ? RTC TEAR,tendinitis biceps brachi,lt rotator cuff tear,m75.102,m75.22. TECHNIQUE: Multiplanar multisequence MRI was performed. COMPARISON: CR XR SHOULDER LT COMPLETE 2+V from 11/06/2023 FINDINGS: BONES: There is no fracture or contusion pattern. Tiny subchondral cysts are seen in the humeral head . JOINTS: The acromioclavicular joint is normal. The glenohumeral joint is normal. No joint effusion is seen. TENDONS: Supraspinatus: There is a moderate size bursal surface tear of the supraspinatus tendon at its insert ion site. Infraspinatus: There is hyperintense signal seen in the posterior aspect of the infraspinatus tendon which may represent a partial intrasubstance tear. Subscapularis: There is tendinosis of the subscapularis tendon without evidence of a tear. Teres Minor: Unremarkable. Biceps and [place]: Unremarkable. MUSCLES: Unremarkable. GLENOID LABRUM: Unremarkable on this noncontrast examination. SOFT TISSUES: Unremarkable. LIGAMENTS: Unremarkable. OTHER: Subacromial and subdeltoid bursae are unremarkable. IMPRESSION: 1. Moderate-sized bursal surface tear of the supraspinatus tendon at its insertion site. 2. Hyperintense T2 signal seen in the posterior aspect of the infraspinatus tendon suspicious for an intrasubstance tear. 3. No evidence of a labral tear on this noncontrast examination. DATA REPOSITORY:
== END ==
PROVIDERS: PCP Nurse Practitioner; Visit Provider Student in an Organized Health Care Education/Training Program
DX: M75.112 Incomplete rotator cuff tear or rupture of left shoulder, not specified as traumatic
CPT/HCPCS: 73221

== ENCOUNTER 2024-01-24 06:04 | Day surgery (SDC) | payer MEDICAID, SELFPAY ==
--- NOTE | 2024-01-23 13:49 | W.ANESPRE ---
General Info Date of Service Date Performed: 01/24/24 Height: 5 ft 5.75 in Weight: 87.09 kg Body Mass Index (BMI): 31.2 Surgical Procedure: Operation Date: 01/24/24 07:40 Proposed Procedure Side Surgeon p Shoulder Rotator Cuff Arthroscopic w/Extensive Debridement, Biceps Tenodesis, Subacromial Decompression Left Guille Mcfadden MD Meds Allergies and Home Medications Allergies Allergy/AdvReac Type Severity Reaction Status Date / Time sulfamethoxazole Allergy Intermediate Swelling, Verified 01/24/24 06:17 [From Bactrim] itchy rash trimethoprim [From Bactrim] Allergy Intermediate Swelling, Verified 01/24/24 06:17 itchy rash Home Medication Medication Instructions Recorded lorazepam 0.5 mg tablet 0.5 mg PO BID PRN anxiety #30 12/10/22 tab-caps bupropion HCl 150 mg tablet,12 hr 150 mg PO DAILY #90 tab-caps 03/12/23 sustained-release (Wellbutrin SR) sertraline 100 mg tablet (Zoloft) 200 mg (2 x 100 mg) PO DAILY #135 07/16/23 tab-caps ketoconazole 2 % topical cream 1 applic topical DAILY #120 grams 10/24/23 Current Visit Medications: Current Medications Generic Name Dose Route Start Last Admin Trade Name Freq PRN Reason Stop Dose Admin Ringer's Solution 1,000 mls @ 30 mls/hr 01/24/24 06:00 IV 01/24/24 23:59 INFUSION HILARIA Cefazolin Sodium/Dextrose 2 gm in 50 mls @ 100 mls/hr 01/24/24 06:00 Ancef Duplex IVPB 01/24/24 23:59 PREOP HILARIA Tranexamic Acid/Sodium Chloride 1,000 mg in 100 mls @ 600 mls/hr 01/24/24 06:00 IVPB 01/24/24 23:59 PREOP HILARIA IV Miscellaneous Supplies 1 each 01/24/24 06:00 Iv Access IV 01/24/24 23:59 DIRECTED HILARIA Sodium Chloride 0 ml 01/24/24 06:00 Normal Saline Flush 10 Ml Syr IV 01/24/24 23:59 PRN PRN Sodium Chloride 0 ml 01/24/24 06:00 Normal Saline 10 Ml Vial IJ 01/24/24 23:59 DIRECTED PRN Sterile Water 0 ml 01/24/24 06:00 Water,Injection,Sterile 10 Ml Vial IJ 01/24/24 23:59 DIRECTED PRN PFSH Active Problems Active Problems: Problem Status Onset Code Bursitis of left shoulder M75.52 Tendinitis of long head of biceps brachii of left shoulder M75.22 Left rotator cuff tear ~03/2023 M75.102 Corns and callosities L84 Nail dystrophy L60.3 Onychomycosis B35.1 Seborrheic keratoses ~02/2022 L82.1 Palpitations R00.2 Syncope R55 Overweight E66.3 History of HPV infection Z86.19 Medical History Medical History Family history of diabetes mellitus Tobacco Smoking/Tobacco Use Status: Never Alcohol Alcohol Intake: current Alcohol intake frequency: a few times a month Alcohol type: beer Substance Use Substance use: Never Substance use type: does not use Prental History History 3 Para 3 Hx # Term Pregnancies 3 Multiple births Hx # Pregnancies Ectopic pregnancies AB induced Hx Number of Living Children 3 AB spontaneous Vital Signs and Lab Results Vital Signs Most Recent Vital Signs in EMR: Temp Pulse Resp BP Pulse Ox 36.7 C 96 H 16 168/96 H 98 01/24/24 06:33 01/24/24 06:33 01/24/24 06:33 01/24/24 06:33 01/24/24 06:33 Lab Results Blood Type / Crossmatch: No Data to Display Complete Blood Count: No Data to Display Complete Metabolic Panel: No Data to Display Liver Function Panel: No Data to Display Coagulation Panel: No Data to Display Cardiac Panel: No Data to Display Arterial Blood Gas: No Data to Display Venous Blood Gas: No Data to Display Pancreas Panel: No Data to Display Thyroid Panel: No Data to Display Infectious Disease: No Data to Display Blood Cultures: No Data to Display Toxicology Panel: No Data to Display Panel: No Data to Display Imaging and Studies Imaging and Studies Study information below may be from another EMR and interpreted by another provider. Please see original notes in EMR for more complete details. EKG Summary: 09/27: sinus, iRBBB. Stress Test Summary: 09/26: 10.25 METS, no ECG evidence of ischemia. Echocardiogram Summary: 01/21: LVEF 55-60%, normal RvFxn. Anesthesia Assessment and Plan Anesthesia History Personal History: No History of Anesthesia Complications Family History: No Family History of Anesthesia Complications Exercise Tolerance Exercise Tolerance: Metabolic Equivalents>4 Cardiac & Pulmonary Exam Cardiac Exam: Normal S1/S2 Heart Sounds Pulmonary Exam: Clear Bilateral Breath Sounds Implantable Cardiac Device Does patient have a Pacemaker or an ICD?: No Airway Exam Known Difficult Airway: No Mallampati Class: 2 Mouth Opening: Normal (> 3cm) Thyromental Distance: Greater than 3 cm Neck Range of Motion: Full ROM Neck Circumference: Normal Teeth Condition: Normal Dentition ASA Classification ASA Score: ASA 2 Emergency Case?: No NPO Status NPO Status: NPO Clears >2 hours, Solids >8 hours Status Status: Negative HCG Anesthesia Plan Resuscitation Status: Full Code Anesthesia Technique: General Anesthesia Airway Planned: Endotracheal Tube Pain Management: Surgeon and patient request nerve block Monitors Used: Standard Monitors Preoperative Comments:: 43 yo female for shoulder arthroscopy. Sig PMHx: anxiety/depression. never smoker, occ EtOH. BP elevated today, but not historically.
[2024-01-24] VITALS (16 sets, daily range): BP systolic 112–168; BP diastolic 55–96; PULSE 73–96; RESP 14–20; TEMP 36.5–37; O2SAT 95–99; BMI 31.2
[2024-01-24] MEDS: Lactated Ringers 1,000 ML 30 ML IV (06:37)
--- NOTE | 2024-01-24 07:07 | W.PM.DSUDISC ---
Date of service: 01/24/24 Time of Service: 11:00 Discharge Plan Disposition Patient Disposition: Home Condition: Stable Discharge Details Attending Provider: Guille Mcfadden Primary Care Provider: Charlotte Woodruff Home Meds and New Rx's Prescriptions: New naproxen 250 mg tablet 250 - 500 mg PO BID PRN (Reason: moderate pain and swelling) Qty: 40 0RF oxycodone 5 mg tablet 5 - 10 mg PO .q4-6h PRN (Reason: severe pain) Qty: 18 0RF Continued ketoconazole 2 % cream 1 applic topical DAILY Qty: 120 6RF Rx Instructions: Apply to toenails once daily bupropion HCl [Wellbutrin SR] 150 mg tablet sustained-release 12 hr 150 mg PO DAILY Qty: 90 3RF lorazepam 0.5 mg tablet 0.5 mg PO BID PRN (Reason: anxiety) Qty: 30 2RF sertraline [Zoloft] 100 mg tablet 200 mg PO DAILY Qty: 135 3RF Rx Instructions: 1.5 tab daily for depression Discharge Instructions Additional Instructions: Surgery: Left shoulder arthroscopy with rotator cuff repair (supraspinatus), biceps tenodesis, extensive debridement, and subacromial decompression. Activity: For 6 weeks, you should keep your arm at your side in a neutral position at all times except for physical therapy. Do not try to lift or raise your arm using your own muscles. You should use the sling whenever you are out of the house. At home it is best to remove the sling and rest the arm on a pillow at your side or support the operative side with your other hand. You may allow the arm to dangle at your side. A physical therapy prescription will be sent electronically to begin in about 3 weeks. Prescriptions: Naproxen 250 mg take 1-2 every 12 hours with a meal as needed for moderate pain Oxycodone 5 mg take 1-2 every 4-6 hours as needed for severe pain You may use [id number] Tylenol (acetaminophen) as needed for mild pain. These pain medications may be taken all at once or in different combinations as needed. Also, recommend Colace (docusate) as a stool softener as surgery and pain medicine cause constipation. You may try [id number] diphenhydramine (Benadryl) 25-50 mg nightly as a sleep aid Dressings: Remove shoulder bandage after 3 days. Leave the sticky Steri-Strips in place until they fall off or remove them after you shower. Cover the incisions with Band-Aids or leave them open to air. You may shower after 5 days. Follow-up: 10-[address] Mcfadden You may take off the leg compression stockings this evening at home. You may also leave them on a few days longer if you have a history of leg swelling or edema. Let us know right away if you develop any redness, drainage, fevers, chest pain, or trouble breathing. Do not drink alcohol or drive for at least 24 hours after anesthesia. Please call the office during business hours with any questions or concerns. Stand Alone Forms: Anesthesia Discharge InstAyaan, Rosales Alvarez (DSU) Discharge Orders Discharge Orders: Discharge Order (Routine); Ordered 01/24/24 Ordered By: Cee Mina DS: Diagnosis Discharge Diagnosis (1) Left rotator cuff tear: Status: Acute
--- NOTE | 2024-01-24 07:15 | W.PM.OP ---
Date of service: 01/24/24 Time of Service: 07:30 Operative Note Operative Note DATE OF PROCEDURE: 01/24/24 PRE-OP DIAGNOSIS: Left: 1. Rotator cuff tear 2. LHB tendinopathy 3. Bursitis POST-OP DIAGNOSIS: same PROCEDURE: Left: 1. Rotator cuff repair, CPT# 18110. This involved repair of the supraspinatus using anchors and sutures to reattach the rotator cuff back to the footprint of the greater tuberosity. 2. Arthroscopic biceps tenodesis, CPT# 94289. This involved arthroscopically suturing and reattaching the long head of the biceps tendon to the proximal humerus at the superior margin of the bicipital groove with a screw at the correct tension. 3. Extensive debridement, CPT# 96939. This involved using arthroscopic hand instruments, power instruments, and radiofrequency instruments to release the long head of the biceps tendon and debride areas of labral tearing, synovitis,, and partial subscapularis and supraspinatus articular sided tearing working within the glenohumeral joint anteriorly, superiorly and posteriorly. 4. Subacromial decompression with partial acromioplasty, CPT# 69628. This involved using arthroscopic power instruments and a radiofrequency wand to remove significant bursitis and lightly smooth the undersurface of the acromion. The visual merchandising assistant was medically required in order to help assist in techniques above, which require positioning the arm, holding the arthroscope, and manipulating multiple instruments and sutures at the same time. This cannot be done without the help of an experienced visual merchandising assistant. SURGEON: Guille Mcfadden BINDER STRIPPER MACHINE: Cee Mina ANESTHESIA TYPE: Local By Surgeon, General LMA/ETT and Primary Nerve Block Refer to Anesthesia Record ESTIMATED BLOOD LOSS: 5 PATHOLOGY: none sent COMPLICATIONS: None Patient was transported to: PACU Patient's condition: stable Implants: Arthrex: 4.75mm SwiveLocks x 2 Indications: The patient was diagnosed with the above conditions and appropriately indicated for surgical intervention. Please see complete medical record for details. Findings: Exam under anesthesia: Full range of motion, no instability Glenohumeral joint: Moderately sized anterior to posterior only mild thickness with minimal footprint involvement articular sided supraspinatus tendon tearing. Anterior labral fraying tearing. Minimal superior labrum pathology. Intra-articular biceps intact with significant injection at the superior aspect bicep groove and adjacent biceps sling disruption partial tearing. Lateral moderately sized superior to inferior subscapularis partial tear fraying, but minimal footprint involvement. Articular cartilage intact. Subacromial space: Remarkably significant bursitis throughout. Thin veil intact bursal supraspinatus over small intrasubstance degeneration, which did not really probe or communicate full-thickness into the joint. Significant rotator cuff injection. No significant subacromial bone spurring. Procedure Description: In the operating room, general anesthesia was induced. Bilateral shoulders were examined. The patient was positioned in the beachchair position. All bony prominences were well-padded. Preoperative antibiotics were administered. The shoulder was prepped and draped in the usual sterile fashion. The correct patient, procedure, and side of the procedure were all verified prior to incision. Starting through the posterior portal a standard complete diagnostic arthroscopy was performed of the glenohumeral joint including inspection of the long head of the biceps, anterior and superior labrum, subscapularis tendon, supraspinatus and infraspinatus tendons, and axillary recess. The glenoid and humeral head cartilage as well as the posterior labrum were inspected from an anterior viewing portal. Significant findings and interventions noted above. Of note, the partial articular subscapularis tear was debrided, was then stable did not require any repair to the lesser tuberosity. The anterior labral tear was lightly debrided. The supraspinatus articular tear was carefully debrided to a more stable margin and spinal needle inserted from the subacromial space lateral through the tear margin did not seem to reveal any full-thickness tear but would be used later for localization. An all-arthroscopic suprapectoral biceps tenodesis was performed through an anterior portal using a Loop N Tack method with a SutureTape FiberLink cinched around and through the tendon. The biceps was tenotomized from the labrum and fixated with a suture anchor at the superior margin of the bicipital groove. The knotless repair mechanism suture was then shuttled around the biceps stump and tension adding additional fixation strength and security to the biceps repair. Starting through the posterior portal, the arthroscope was directed into the subacromial space. A lateral 50 yard line lateral portal was created. A combination of power instruments and a radiofrequency ablator were used to debride bursitis anteriorly, posteriorly, and laterally as well as expose and smooth bone spurring on the undersurface of the acromion. The coracoacromial ligament was partially released. The bursectomy was completed viewing laterally and working from posteriorly and the rotator cuff was thoroughly inspected with findings noted above. Some bursitis had to be left on the far margins given the significant extent of it to avoid disruption of the deltopectoral fascia and rotator cuff muscle. Supraspinatus tear was localized on probing correlating to the small area of defect on the MRI. The lateral tissue was carefully elevated from the lateral greater tuberosity using sharp elevator, the intrasubstance degeneration lightly abraded with the elevator and shaver to stimulate bone tendon healing as well as debride the unhealthy rotator cuff. The tear did not seem to probe or propagate more widely or full-thickness. Decision was made to proceed with a speed fix type construct. Tear was probed and measured with the cuff grasper. The self retrieving suture passer used to place a widely spaced throughout the margins of the tear inverted horizontal mattress FiberTape. Ripstop configuration suture tape FiberLink in cinch mode was placed centrally. All the repair sutures were then secured to a single lateral 4.75 mm SwiveLock anchor. A sliding repair stitch from this anchor was then used to secure some anterior partial-thickness tearing as well with an [facility] arthroscopic knot. The tear and repair was inspected with good reduction and fixation stable through range of motion and testing. The shoulder was drained of arthroscopic fluid. All portal sites were copiously irrigated. These incisions were closed using 3-0 Monocryl in a buried fashion and then covered with Mastisol, Steri-Strips, Xeroform, dry gauze, and ABDs. The dressings were covered and secured with Medipore tape. The operative extremity was placed into a sling for immobilization. The patient awoke from anesthesia without complication and was transferred to the recovery room in a stable condition.
--- NOTE | 2024-01-24 07:23 | W.ANESNERVE ---
Nerve Block Single Injection Procedure Date and Time Date Performed: 01/24/24 Procedure Start: 07:14 Location Where Procedure Performed Procedure Location: Day Surgery Unit Reason Performed: Postoperative Analgesia Requesting Provider: Guille Mcfadden Timeout Performed Timeout Performed: Yes Monitoring Used ECG, Blood Pressure, SpO2 and ETCO2 Sterility Sterility: Hand Hygiene, Surgical Cap, Surgical Mask, Sterile Gloves and Chlorhexidine Sedation Given During Procedure Sedation Given (Indicate Dose Given): Versed IV (2 mg + 2 mg) Dose:: 4 mg Patient Mental Status Patient Mental Status: Sedate with meaningful communication Nerve Block 1st Nerve Block: Laterality: Left Block Type: Interscalene Ultrasound Image Saved?: Yes Needle / Catheter Used: 100mm SonoPlex II Local Anesthetic Bolus (Indicate Dose Given): Lidocaine used for local infiltration of skin, Injected in 3-5ml increments after negative blood aspiration, Bupivacaine 0.5% Dose:: 10 mL and Exparel Dose:: 10 mL Additives (Indicate Dose Given): None Ultrasound: Sterile probe cover and gel used Nerve Stimulator: Supplement to Ultrasound use and No twitch or parasthesia noted < 0.5 mA Paresthesia: None Procedure Tolerated: No Complications Procedure Outcome: Successful Performed By: Sergio Blank
[2024-01-24] MEDS: ceFAZolin 2 GM/50 ML BAG IVPB (07:35)
[2024-01-24] MEDS: TRANEXAMIC ACID/SOD. CHL. 1,000 MG/100 ML BAG 600 MG IVPB (07:39)
[2024-01-24] MEDS: Bupivacaine 0.25% Pres-Free W/EPI 30 ML VIAL (08:12)
[2024-01-24] MEDS: EPINEPHrine 10 MG/10 ML ML (09:41)
--- NOTE | 2024-01-24 10:17 | W.ANESPOSTOP ---
Postoperative Evaluation Date, Time and Location Date Performed: 01/24/24 Time Performed: 10:17 Patient Location: PACU Vital Signs Most Recent Imported Vital Signs: Most Recent Vital Signs Temp Pulse Resp BP Pulse Ox 36.6 C 80 16 130/61 98 01/24/24 10:11 01/24/24 10:11 01/24/24 10:11 01/24/24 10:11 01/24/24 10:11 Pain Score Most Recent Pain Score: Most Recent Pain Score Pain Level 0 01/24/24 07:13 Assessment Mental Status: Awake (Alert & Oriented to Patient Baseline) Airway and Respiratory Function: Patent airway with normal (patient baseline) respiratory exam Cardiovascular Function: Hemodynamically Stable Hydration Status: Adequately Hydrated Nausea & Vomiting: No Nausea or Vomiting Pain: Pain is tolerable per patient Peripheral Nerve Block: Regional nerve block not resolved at time of post operative discharge
== END 2024-01-24 12:32 | disposition home or self-care (01) ==
PROVIDERS: PCP Nurse Practitioner; Visit Provider Student in an Organized Health Care Education/Training Program
PROC: (CPT 29827; principal; 2024-01-24 07:30)
DX: M75.102 Unspecified rotator cuff tear or rupture of left shoulder, not specified as traumatic (principal); M75.22 Bicipital tendinitis, left shoulder; M75.52 Bursitis of left shoulder
CPT/HCPCS: 29827; 29828; 29823; 29826; 76942; 81025; C9290; J0131; J0665; J0690; J1100; J1885; J2250; J2405; J2704

== ENCOUNTER 2024-01-25 14:46 | Emergency (ER) | payer MEDICAID, SELFPAY ==
--- NOTE | 2024-01-25 14:45 | DI.CT_ITS ---
Exam(s) CT CHEST PE CTA EXAM: CT CHEST PE CTA CLINICAL HISTORY: post op scalene block, SOB, r/o PE. TECHNIQUE: Imaging Protocol: Axial CT angiography was performed with multi-slice acquisition and mu lti-planar reconstructions as well as axial, coronal and sagittal MIP reconstructions. CONTRAST MATERIAL: Intravenous: Omnipaque 350 Contrast volume:100 ml COMPARISON: CT CT CHEST PE CTA from 09/07/2021 FINDINGS: Pulmonary Arteries: No evidence of filling defect to suggest pulmonary emboli. Tracheobronchial tree: No mucous plugging. Mediastinum and Mary: No dominant adenopathy or fluid collection. Pulmonary parenchyma: Suboptimal evaluation due to expiratory changes. No consolidation or dominant measurable mass. Pleura: No effusion or pneumothorax. Heart: The heart is not dilated. No coronary artery calcifications are seen. Aorta: Thoracic aorta non-dilated. No dissection. Upper abdomen: No acute findings. Bones: [id number] degenerative changes in the spine, somewhat advanced for the patient's age. Tubes, Catheters, and Lines: None Soft tissues: Air in the soft tissues of the left shoulder. Patient is status post recent scalene bl ock. No visible hematoma. Bones and soft tissues the shoulder are not fully included in the field o f view. IMPRESSION: No evidence of pulmonary embolism or other acute abnormality.. Air in the soft tissues of the left shoulder related to recent injection procedure. No evidence of h ematoma. RADIATION DOSE DELIVERED: Total DLP DATA REPOSITORY: All CT scans at this facility are submitted to the National Radiology Data Registry (NRDR) Dose Index Registry (DIR) with the [employer] (ACR). RADIATION OPTIMIZATION: All CT scans at this facility use at least one of these dose optimization te chniques: automated exposure control; mA and/or kV adjustment per patient size (includes targeted exa ms where dose is matched to clinical indication); or iterative reconstruction.
--- NOTE | 2024-01-25 14:45 | RT.EKG_ITS ---
APPROVED REPORT Exam: Resting ECG Reason for Exam: sob Patient Location: E HR:82 bpm ECG Measurements Heart Rate 82 AXIS AK 179 P 49 QRSd 112 QRS 32 QT 379 T 22 QTc 443 Conclusion Sinus rhythm...normal P axis, V-rate 60- 99 Incomplete right bundle branch block...QRSd >112, terminal axis(90,270) Low voltage, precordial leads...precordial leads <1.0mV Physician: no stemi. Q3T3 present which appears to be new compared to prior ekg on 09/20/22
[2024-01-25 14:51] VITALS: BP 165/100; PULSE 102; RESP 12; O2SAT 98
--- NOTE | 2024-01-25 14:56 | ED.GENADUL_ITS ---
Discharge Plan Disposition Patient Disposition: Home Condition: Good Discharge Details Clinical Impression: Shortness of breath Primary Care Provider: Charlotte Woodruff ED Provider: Alverto Castrejon Home Meds and New Rx's Prescriptions: Continued ketoconazole 2 % cream 1 applic topical DAILY Qty: 120 6RF Rx Instructions: Apply to toenails once daily bupropion HCl [Wellbutrin SR] 150 mg tablet sustained-release 12 hr 150 mg PO DAILY Qty: 90 3RF lorazepam 0.5 mg tablet 0.5 mg PO BID PRN (Reason: anxiety) Qty: 30 2RF sertraline [Zoloft] 100 mg tablet 200 mg PO DAILY Qty: 135 3RF Rx Instructions: 1.5 tab daily for depression naproxen 250 mg tablet 250 - 500 mg PO BID PRN (Reason: moderate pain and swelling) Qty: 40 0RF oxycodone 5 mg tablet 5 - 10 mg PO .q4-6h PRN (Reason: severe pain) Qty: 18 0RF Discharge Instructions Instructions: Shortness of Breath, Adult ED Additional Instructions: At this time your laboratory workup is returned normal. Your heart markers and your blood are both normal. Your CAT scan shows no evidence of blood clot, significant pneumonia, tumor or mass or other abnormality. Your EKG does show a very slight change, and I would recommend repeat EKG in the next 1 to 2 weeks for reassessment. Please continue to rest, drink fluids and stay well-hydrated. Take Tylenol and Motrin as needed for pain. If you notice any worsening of your symptoms, or any new symptoms such as vomiting, diarrhea, fever, chills, shortness of breath, chest pain, numbness, weakness, or fainting , please return immediately to the emergency department for reevaluation. Please follow up with your primary care provider as soon as possible for reassessment and reevaluation. As always, it was a pleasure participating in your medical care today. Referrals: Charlotte Woodruff NP [Primary Care Provider] - [facility] General Date/Time Provider Initiated Documentation: 01/25/24 14:47 . HPI Narrative: This is a very pleasant 43-year-old female with no significant past medical history except for recent left shoulder surgery for rotator cuff injury and bicep tendon repair, who presents today for shortness of breath. Surgery was yesterday, she had a scalene block performed. Surgery was successful without any complications at the time. She went home and had been doing very well. She took a single naproxen this morning. She did notice that when she woke up this morning she felt quite short of breath. No chest pain, pleuritic chest pain, or pain with movement of the chest. Her shortness of breath felt like she could not catch a deep breath even when trying to take a deep breath. She denies hemoptysis, fever or chills. Aside for the recent surgery yesterday she has had no other recent surgeries or procedures or long trips. She does not take any estrogen supplementation. She does not use control in the estrogen form. No personal or family history of blood clots. She denies cough, fever, chills, vomiting, diarrhea, or exertional chest pain. No other complaints at this time. She states that most of her sensation has returned in her left shoulder and arm after the initial block however there is still a slight amount of atypical sensation around the axillary region and lateral shoulder but it is slowly coming back. Related Data Home Medications Medication Instructions Recorded Confirmed lorazepam 0.5 mg tablet 0.5 mg PO BID PRN anxiety #30 12/10/22 01/25/24 tab-caps bupropion HCl 150 mg tablet,12 hr 150 mg PO DAILY #90 tab-caps 03/12/23 01/25/24 sustained-release (Wellbutrin SR) sertraline 100 mg tablet (Zoloft) 200 mg (2 x 100 mg) PO DAILY #135 07/16/23 01/25/24 tab-caps ketoconazole 2 % topical cream 1 applic topical DAILY #120 grams 10/24/23 01/25/24 naproxen 250 mg tablet 250 - 500 mg (1 - 2 x 250 mg) PO 01/24/24 01/25/24 BID PRN moderate pain and swelling #40 tabs oxycodone 5 mg tablet 5 - 10 mg (1 - 2 x 5 mg) PO .q4-6h 01/24/24 01/25/24 PRN severe pain #18 tabs Previous Rx's Medication Instructions Recorded lorazepam 0.5 mg tablet 0.5 mg PO BID PRN anxiety #30 12/10/22 tab-caps bupropion HCl 150 mg tablet,12 hr 150 mg PO DAILY #90 tab-caps 03/12/23 sustained-release (Wellbutrin SR) sertraline 100 mg tablet (Zoloft) 200 mg (2 x 100 mg) PO DAILY #135 07/16/23 tab-caps ketoconazole 2 % topical cream 1 applic topical DAILY #120 grams 10/24/23 naproxen 250 mg tablet 250 - 500 mg (1 - 2 x 250 mg) PO 01/24/24 BID PRN moderate pain and swelling #40 tabs oxycodone 5 mg tablet 5 - 10 mg (1 - 2 x 5 mg) PO .q4-6h 01/24/24 PRN severe pain #18 tabs Allergies Allergy/AdvReac Type Severity Reaction Status Date / Time sulfamethoxazole Allergy Intermediate Swelling, Verified 01/25/24 14:54 [From Bactrim] itchy rash trimethoprim [From Bactrim] Allergy Intermediate Swelling, Verified 01/25/24 14:54 itchy rash General Stated Complaint: SOB/SuddenOnset MITCHELL: 3 Review of Systems All systems reviewed & are unremarkable except as noted in HPI and below Exam Narrative Exam Narrative: 1.Const: Well-nourished, Well-developed, appearing stated age 2.Eyes: PERRL, no conjunctival injection, and symmetrical lids. 3.ENT: Atraumatic external nose and ears. Moist MM. Neck: Symmetric, trachea midline, No thyromegaly. 4.CVS: +S1/S2, No murmurs or gallops. Peripheral pulses 2+ and equal in all extremities. Brisk capillary refill in all extremities. 5.RESP: Unlabored respiratory effort. Clear to auscultation bilaterally. No wheezes rales or rhonchi 6.GI: Soft, Nontender/Nondistended, No hepatosplenomegaly. No guarding or rebound. 7.MSK: Normocephalic/Atraumatic, Extremities w/o deformity or ttp No cyanosis or clubbing, left shoulder is currently in splint and bandaged. Radial pulses bilaterally are +2. Patient demonstrates good movement of all fingers, excellent sensation and brisk capillary refill of all fingers on both hands. Axillary sensation is intact but subjectively is slightly reduced on the left. No redness or warmth. No reproducible chest wall pain. 8.Skin: Warm, Dry. No rashes or lesions. 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 Sensation grossly intact, no focal neurologic deficits. 10.Psych: (AAO) x3. Appropriate mood and affect Course Vital Signs Vital signs: Vital Signs Pulse 102 H 01/25/24 14:51 Respiratory Rate 12 01/25/24 14:51 Blood Pressure 165/100 H 01/25/24 14:51 Pulse Oximetry 98 01/25/24 14:51 Temperature Source Temporal Artery Scan 01/25/24 14:51 Pulse 102 H 01/25/24 14:51 Respiratory Rate 12 01/25/24 14:51 Blood Pressure 165/100 H 01/25/24 14:51 Blood Pressure Position Sitting 01/25/24 14:51 Pulse Oximetry 98 01/25/24 14:51 Oxygen Delivery Method Room Air 01/25/24 14:51 Oxygen Flow Rate 0 01/25/24 14:51 Pain Level 0 01/25/24 14:51 Medical Decision Making This is a very pleasant 43-year-old female with no significant past medical history except for recent left shoulder surgery for rotator cuff injury and bicep tendon repair, who presents today for shortness of breath. Surgery was yesterday, she had a scalene block performed. Surgery was successful without any complications at the time. She went home and had been doing very well. She took a single naproxen this morning. She did notice that when she woke up this morning she felt quite short of breath. No chest pain, pleuritic chest pain, or pain with movement of the chest. Her shortness of breath felt like she could not catch a deep breath even when trying to take a deep breath. She denies hemoptysis, fever or chills. Aside for the recent surgery yesterday she has had no other recent surgeries or procedures or long trips. She does not take any estrogen supplementation. She does not use control in the estrogen form. No personal or family history of blood clots. She denies cough, fever, chills, vomiting, diarrhea, or exertional chest pain. No other complaints at this time. She states that most of her sensation has returned in her left shoulder and arm after the initial block however there is still a slight amount of atypical sensation around the axillary region and lateral shoulder but it is slowly coming back. Exam demonstrates well-appearing female, left shoulder is bandaged, arm in the splint. Sensation is intact throughout, but slightly diminished in the axillary and deltoid region. Radial pulses are +2, good finger movement capillary refill and sensation distally. Lung sounds are clear bilaterally. Symptoms appear inconsistent with tension pneumothorax. Differential includes mild pneumothorax post scalene block, aspiration pneumonia, pulmonary embolism, ACS, or mild pulmonary edema. Symptoms may certainly also be just secondary to mild deconditioning of the 1 days of rest postprocedure. ACS/cardiac etiology is also on the differential, pericardial tamponade unlikely but effusion of concern. We will get POCUS, CTA of the chest to rule out PE and evaluate for pneumonia, evaluate for concerning etiologies, monitor closely and reassess. 7:16 PM Laboratory workup has returned normal, initial and repeat troponin are both normal. EKG is slightly atypical with a Q wave in lead III and inverted T wave in lead III. However CTA has returned and shows no evidence of pulmonary embolus or other abnormality aside for the scattered soft tissue gas postoperatively. She has no redness or warmth at the site of the surgery, no signs of infection in that regard. On reassessment patient feels much better. She feels well and would like to go home. No evidence of pneumonia on CAT scan, electrolytes normal, proBNP normal showing no signs of heart strain. Bedside echo shows no evidence of pericardial tamponade or significant effusion. Patient stable for discharge. At this time there is no clinical evidence to suggest dissection, PE, aneurysm, ACS, pneumothorax or other acute abnormality. Patient will be discharged home. Discussed red flags for which to return. I have extensively reviewed the treatment plan and discharge instructions with the patient. I have addressed all patient concerns at this time. The patient was made aware of what symptoms to monitor for that would warrant a return to the emergency department. Discussed the plan with the patient, they demonstrate verbal understanding and agreement with our assessment and plan at this time. The documentation in this chart was dictated using [employer] dictation software. Please excuse any dictation errors. FINDINGS: Pulmonary arteries: Normal. No pulmonary emboli. Aorta: Unremarkable. No aortic aneurysm. No aortic dissection. Lungs: Unremarkable. No consolidation. No masses. Pleural spaces: Unremarkable. No pneumothorax. No pleural effusion. Heart: Unremarkable. No cardiomegaly. No pericardial effusion. Lymph nodes: Unremarkable. No enlarged lymph nodes. Bones/joints: Moderate degenerative changes throughout the thoracic spine. No vertebral body compression acute fracture. Soft tissues: Scattered soft tissue gas about the left shoulder and in the left subscapular region presumably due to recent injection in this area. IMPRESSION: No evidence of pulmonary embolus or other acute abnormality in the chest. Scattered soft tissue gas about the left shoulder presumably due to recent injection procedure Thank you for allowing us to participate in the care of your patient. Dictated and Authenticated by: Srinivas Roy MD 01/25/2024 6:55 PM Eastern Time ([place] & [place]) Quality:SDOH Health Related Social Needs: No Data to Display PFSH All Active Problems (Updated 01/25/24 @ 19:04 by Alverto Castrejon DO) Shortness of breath (Acute) Bursitis of left shoulder (Acute) Tendinitis of long head of biceps brachii of left shoulder (Acute) Left rotator cuff tear (Acute ~03/2023) s/p Left shoulder arthroscopy with rotator cuff repair (supraspinatus), biceps tenodesis, extensive debridement, and subacromial decompression 01/24/24 Corns and callosities (Acute) Nail dystrophy (Acute) Onychomycosis (Acute) Seborrheic keratoses (Acute ~02/2022) 03/06/22 Dr Villatoro Palpitations (Acute) Syncope (Chronic) Overweight (Acute) History of HPV infection (Chronic) 2016, 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 2019 -HPV, 2020 -HPV Medical History Family history of diabetes mellitus Family History Father Hyperlipidemia Hypertension Maternal Grandmother Diabetes Heart disease Asthma Paternal Grandmother Colon cancer Mother Raynauds disease Social History Smoking/Tobacco Use Status: Never Smoking risk assessment performed?: Yes Alcohol Intake: current Alcohol Intake frequency: a few times a month Alcohol type: beer Counseling given: No Drug use: Never Substance use type: does not use Counseling given: No Adopted: No Caregiver/Support person: No Foster care: No Household members: significant other, children and other Details: Sae Garcia Housing: house Number of Children: 3 Communication Needs: None Education Level: college Details: associates degree Do you need help understanding health information?: Never 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 Sylvester) Pets and animals: cat(s), dog(s) and other Details: rabbit Sexually active: Yes (condoms for BC.) Do you think of yourself as: straight/heterosexual Current gender identity: female What is your relationship status?: living with partner How often do you talk on the phone with friends or family?: three or more times per week How often do you get together with friends or relatives?: once per week Do you belong to any clubs or organized social groups?: no Panel score (0-1 are the most socially isolated patients): 2 What type of physical activity do you participate in: walking, other and yoga Duration: 15-30 minutes/day Frequency: 3-4 times per week Birdie/Holiness: Moravian Special birdie needs: No Seatbelt use: always Helmet use: Yes Drive intox or ride w/intox milk wagon driver: No Working smoke detector in home: Yes Fire extinguisher in home: Yes Carbon monox detector in home: Yes Do you feel safe at home: Yes Do you feel safe in your relationship?: Yes Female Reproductive History Menstrual control method: condoms History History 3 Para 3 Hx # Term Pregnancies 3 Multiple births Hx # Pregnancies Ectopic pregnancies AB induced Hx Number of Living Children 3 AB spontaneous POCUS Exam (ED) Limited Cardiac Exam DATE OF EXAM: 01/25/24 TIME OF EXAM: 15:55 PROVIDER THAT PERFORMED THE STUDY: Alverto Castrejon IS THIS A REPEAT EXAM DURING THIS ENCOUNTER: no REASON FOR EXAM: Dyspnea VISUALIZED STRUCTURES: Left atrium, Left ventricle, Right ventricle, Mitral valve and Interventricular septum VIEW OBTAINED: Parasternal long-axis PERTINENT FINDINGS/IMPRESSION: No apparent abnormalities Exam complete
[2024-01-25] MEDS: Normal Saline 500 ML IV (15:32)
[2024-01-25 15:34] LABS: BE (Venous) 2 mmol/L (-2-3); HCO3 (Venous) 27 mmol/L (23-28); O2 Sat (Venous) 66 %; TCO2 (Venous) 25 mmol/L (24-29); pCO2 (Venous) 44 mmHg (41-51); pO2 (Venous) 34 mmHg
[2024-01-25 15:36] VITALS: RESP 16
[2024-01-25 15:36] LABS: Abs Immature Grans 0.05 10^3/uL (0.0-0.06); Absolute Basophil Count 0.06 10^3/uL (0.0-0.2); Absolute Eosinophil Count 0.17 10^3/uL (0.0-0.7); Absolute Monocyte Count 0.82 10^3/uL (0.1-0.8); Basophils % 0.5 %; Eosinophils % 1.5 %; HCT 38.3 % (36.0-46.0); HGB 12.7 g/dL (11.2-15.7); Immature Grans % 0.4 %; Lymphocytes % 30.4 %; MCH 28.8 pg (27.0-33.0); MCHC 33.2 % (32.0-36.0); MCV 87 fL (80-95); MPV 9.8 fL (8.0-11.0); Monocytes % 7.3 %; Neutrophils % 59.9 %; Platelet Count 234 10^3/uL (130-400); RBC 4.41 10^6/uL (3.93-5.22); RDW 12.8 % (11.7-14.6); RDW-SD 40.6 fL
[2024-01-25 15:39] LABS: Absolute Neutrophil Count 6.71 10^3/uL (1.2-6.7)
[2024-01-25 15:51] LABS: PTT Activated 25.1 sec (23.6-32.8); Prothrombin Time 10.5 sec (9.1-11.1)
[2024-01-25 16:00] LABS: ALT 28 U/L (14-59); AST 16 U/L (15-37); Albumin 4.1 g/dL (3.4-5.0); Alkaline Phosphatase 73 U/L (46-116); Anion Gap 9.6 mmol/L (3-11); BUN 12 mg/dL (7-18); CO2 28.4 mmol/L (21.0-32.0); CREATININE 0.8 mg/dL (0.55-1.02); Chloride 103 mmol/L (98-107); Estimated GFR 94.87 (mL/min/1.73m2); Glucose 113 mg/dL (74-106); NT-proBNP 111 pg/mL (<300); Potassium 3.5 mmol/L (3.5-5.1); Sodium 141 mmol/L (136-145); Total Protein 7.8 g/dL (6.4-8.2)
[2024-01-25 16:02] LABS: Troponin I < 50 ng/L (< or =60)
[2024-01-25] MEDS: Omnipaque 350 MG/ML 100 ML BTL IJ (16:02)
[2024-01-25] MEDS: Normal Saline - Diluent 50 ML VIAL IJ (16:07)
[2024-01-25 16:16] VITALS: BP 142/90; PULSE 82; RESP 18; O2SAT 98
[2024-01-25 17:15] VITALS: BP 134/84; PULSE 76; RESP 18; O2SAT 98
[2024-01-25 18:36] LABS: Troponin I < 50 ng/L (< or =60)
--- NOTE | 2024-01-25 18:56 | DI.VRAD_ITS ---
PROCEDURE INFORMATION: Exam: CTA Chest With Contrast Exam date and time: 01/25/2024 4:04 PM Age: 43 years old Clinical indication: Other: Post op scalene block, SOB, R/O pe TECHNIQUE: Imaging protocol: Computed tomographic angiography of the chest with contrast. Exam focused on the arteries. 3D rendering (Not supervised by radiologist): MIP and/or 3D reconstructed images were created by the technologist. Contrast material: 350; Contrast volume: 100 ml; Contrast route: INTRAVENOUS (IV); COMPARISON: CT CHEST PE CTA 09/07/2021 11:56 AM FINDINGS: Pulmonary arteries: Normal. No pulmonary emboli. Aorta: Unremarkable. No aortic aneurysm. No aortic dissection. Lungs: Unremarkable. No consolidation. No masses. Pleural spaces: Unremarkable. No pneumothorax. No pleural effusion. Heart: Unremarkable. No cardiomegaly. No pericardial effusion. Lymph nodes: Unremarkable. No enlarged lymph nodes. Bones/joints: Moderate degenerative changes throughout the thoracic spine. No vertebral body compression acute fracture. Soft tissues: Scattered soft tissue gas about the left shoulder and in the left subscapular region presumably due to recent injection in this area. IMPRESSION: No evidence of pulmonary embolus or other acute abnormality in the chest. Scattered soft tissue gas about the left shoulder presumably due to recent injection procedure Dictated and Authenticated by: Srinivas Roy MD. Ordering:RON Del Toro MD
[2024-01-25 19:17] VITALS: BP 130/84; PULSE 73; RESP 18; O2SAT 98
== END 2024-01-25 19:18 | disposition home or self-care (01) ==
PROVIDERS: Emergency Provider Student in an Organized Health Care Education/Training Program; PCP Nurse Practitioner
DX: R06.02 Shortness of breath (principal); Z98.890 Other specified postprocedural states
CPT/HCPCS: 36415; 71275; 80053; 82805; 93005; 93308; 96360; 99285; 83880; 84484; 85025; 85610; 85730; 93010; 99283; J3490

== ENCOUNTER 2024-02-05 07:37 | Outpatient (CLI) | payer MEDICAID, SELFPAY ==
--- NOTE | 2024-02-05 07:30 | RT.EKG_ITS ---
APPROVED REPORT Exam: Resting ECG Reason for Exam: abnormal EKG at ED Patient Location: O HR:92 bpm ECG Measurements Heart Rate 92 AXIS SC 168 P 59 QRSd 110 QRS 66 QT 372 T 30 QTc 461 Conclusion Sinus rhythm...normal P axis, V-rate 50- 99 Probable left atrial enlargement...P >50mS, <-0.10mV V1
== END 2024-02-05 07:38 | disposition home or self-care (01) ==
LOC: DI.KIM 07:41
PROVIDERS: PCP Nurse Practitioner; Visit Provider Nurse Practitioner
DX: R94.31 Abnormal electrocardiogram [ECG] [EKG] (principal); I51.7 Cardiomegaly
CPT/HCPCS: 93010

== ENCOUNTER 2024-03-10 09:54 | Outpatient (CLI) | payer MEDICAID, SELFPAY ==
--- NOTE | 2024-03-10 09:45 | RT.EKG_ITS ---
APPROVED REPORT Exam: Resting ECG Reason for Exam: H/O abnormal EKG Patient Location: O HR:69 bpm ECG Measurements Heart Rate 69 AXIS HI 189 P 42 QRSd 125 QRS 26 QT 416 T 39 QTc 446 Conclusion Sinus rhythm...normal P axis, V-rate 50- 99 Probable left atrial enlargement...P >50mS, <-0.10mV V1 IVCD, consider atypical RBBB...QRSd>120mS, terminal axis(90,270)
--- NOTE | 2024-03-10 14:15 | RT.EKG_ITS ---
APPROVED REPORT Exam: Resting ECG Reason for Exam: abnormal EKG and R Chest pain Patient Location: O HR:72 bpm ECG Measurements Heart Rate 72 AXIS MT 178 P 46 QRSd 115 QRS 26 QT 401 T 33 QTc 439 Conclusion Sinus rhythm...normal P axis, V-rate 50- 99 Probable left atrial enlargement...P >50mS, <-0.10mV V1 Incomplete right bundle branch block...QRSd >112, terminal axis(90,270)
== END 2024-03-10 09:55 | disposition home or self-care (01) ==
PROVIDERS: PCP Nurse Practitioner; Visit Provider Nurse Practitioner
DX: R94.31 Abnormal electrocardiogram [ECG] [EKG] (principal); I51.7 Cardiomegaly; I45.10 Unspecified right bundle-branch block
CPT/HCPCS: 93010

== ENCOUNTER → 2024-03-12 01:21 | Outpatient (CLI) | payer MEDICAID, SELFPAY ==
--- NOTE | 2024-03-12 07:30 | DI.US_ITS ---
APPROVED REPORT EXAM: Comprehensive 2D, Doppler, and color-flow Echocardiogram Patient Location: Out-Patient Core Setter: Hal Poon RDCS (AE) Indications: IVCD on EKG, ? left atrial enlargement Conclusion Normal left ventricular wall thickness and chamber size. Ejection fraction is 55 to 60%. Wall motio n is normal Normal right ventricular size and function Both atria are normal in size There is no structural or hemodynamically significant valvular disease Wall motion Left Ventricle The left ventricle is normal size. The left ventricular systolic function is normal. The left ventric ular ejection fraction is within the normal range. There is normal left ventricular wall thickness. T here is normal LV segmental wall motion. There is no ventricular septal defect visualized. LVEF is 55 -60%. Right Ventricle The right ventricle is normal size. The right ventricular systolic function is normal. Atria The left atrium size is normal. The right atrium size is normal. The interatrial septum is intact wit h no evidence for an atrial septal defect. Aortic Valve The aortic valve is normal in structure. Aortic valve is trileaflet. There is no aortic valvular sten osis. No aortic regurgitation is present. Mitral Valve The mitral valve is normal in structure. No evidence of mitral valve stenosis. Trace mitral regurgita tion. Tricuspid Valve The tricuspid valve is normal in structure. There is no tricuspid valve stenosis. Trace tricuspid reg urgitation. Unable to assess PA pressure. Pulmonic Valve The pulmonary valve is normal in structure. There is no pulmonic valvular stenosis. There is no pulmo jonny valvular regurgitation. Trace pulmonic regurgitation. Great Vessels The aortic root is normal in size. The ascending aorta is normal in size. Aortic arch is normal in ca liber. IVC is normal in size and collapses >50% with inspiration. Pericardium There is no pericardial effusion. 2D Dimensions IVSD d PLAX 0.73 cm F: 0.6-1.0 Ao Root d 2.97 cm F: 2.7 - 3.3 LVPW d PLAX 0.71 cm F: 0.6 - 1.0 Ao Asc Diam d 2.57 cm F: 2.3 - 3.1 LVID d PLAX 5.20 cm F: 3.8 - 5.2 LVDs 3.49 cm F: 2.2 - 3.5 LV EF Teichholz 60.8 % FS 32.76 % LV EDV (Teich) 129.3 mL LV ESV (Teich) 50.7 mL Stroke Vol Index (Teich) 39.13 M-Mode TAPSE 2.76 cm (M/F) >1.7 Auto EF LV EDV A4C 94.7 mL LV EDV A2C 121.1 mL LV EDV BP 106.2 mL LV ESV A4C 39.8 mL LV ESV A2C 48.6 mL LV ESV BP 44.0 mL LVEF(%) A4C 57.9 % LVEF(%) A2C 59.9 % LVEF(%) BP 58.6 % LV SV A4C 54.8 ml LV SV A2C 72.5 ml LV SV BP 62.3 ml LV CO A4C 4.2 L/min LV CO A2C 5.6 L/min LV CO BP 4.9 L/min HR A4C 75.95 BPM HR A2C 76.93 BPM LV EDV Index (BP) LA Volume LA Length A4C 2.4 cm LA Length A2C 2.8 cm LA Area A4C s 7.56 cm2 LA Area A2C s 6.08 cm2 LA Vol A4C A-L 20.35 mL LA Vol A2C A-L 11.11 mL LA Vol Biplane A-L 16.4 mL LA Vol/BSA A4C A-L LA Vol/BSA A2C A-L LA Vol/BSA BP A-L 8.1 mL/m2 LA Vol A4C MOD 16.3 mL LA Vol A2C MOD 7.6 mL LA Vol BP MOD 12.0 mL RA Volume RA Area A4C 6.1 cm2 RA ESV A4C (A-L) 10.1mL RA Vol/BSA A4C A-L RA Length A4C 3.2 cm RA ESV A4C (MOD) 9.4mL LV Diastology MV E' medial 0.124 (>0.07 m/s) MV E Vmax 0.81 (0.4-1.3 m/s) MV E/E' MED 6.55 (<14) MV A Vmax 0.60 (0.4-1.3 m/s) MV E' lateral 0.150 (>0.1 m/s) E/A Ratio 1.4 MV E/E' LAT 5.44 (<14) MV E' Average 0.137 m/s MV E/E'(average) 5.94 Aortic Valve AoV Vmax 0.96 m/s LVOT Vmax 0.64 m/s AoV Peak Grad 3.7 mmHg LVOT Peak Grad 1.6 mmHg AoV Area (Vmax) 1.81 cm2 LVOT VTI 0.149 m AoV VTI 0.207 m LVOT Mean Grad 0.9 mmHg AoV Mean Ryan. 0.68 m/s LVOT SV 40.65 mL AoV Mean Grad 2.1 mmHg LVOT Diam s 1.85 cm AoV Area (VTI) 1.97 cm2 AV Regurg Peak Gr. 3.65 mmHg Velocity Ratio 0.67 Mitral Valve MV DT 136 (160-240 msec) MV Vmax TIPS 0.74 m/s MV Mean Grad 1.1 (<2mmHg) MV VTI 0.213 m Pulmonary Valve PV Vmax 0.70 (0.5-1.5 m/s) RVOT Vmax 0.43 m/s PV Peak Grad 2.0 mmHg RVOT Peak Gr. 0.7 mmHg PV Mean Ryan 0.51 m/s RVOT VTI 0.094 m PV Mean Grad 1.2 mmHg RVOT Mean Gr. 0.4 mmHg
== END ==
PROVIDERS: PCP Nurse Practitioner; Visit Provider Nurse Practitioner
DX: R94.31 Abnormal electrocardiogram [ECG] [EKG] (principal)
CPT/HCPCS: 93306

== ENCOUNTER 2024-04-22 10:58 | Outpatient (REF) | payer MEDICAID, SELFPAY ==
--- NOTE | 2024-04-22 10:40 | PAPFT_PTH ---
PATIENT: Cristina Johns LOC: [facility] U#:[id number] AGE/SX: 43/F ROOM: RE04/22/[address]: Fauzia Hilton NP : 1980 BED: DIS: 04/22/2024 SPEC #: [id number] RECD: 04/22/24 13:17 STATUS: NILDA COVARRUBIAS #: [id number] BEL: 04/22/24 10:[address]: Fauzia Hilton NP DEPT: [facility] Cytology RECD BY: Liseth Rodrigues ENTERED: 04/22/24 13:17 SP TYPE: PAPFT OT DR: Charlotte Woodruff APRN Tissues: 1 - CX/ENDOCX FOR PAP SMEARS Procedures: PAP THIN PREP/[facility] Screening HPV DNA PROBE Comments: [id number] (HPV 16 & 18/45)
== END 2024-04-22 10:59 | disposition home or self-care (01) ==
LOC: LBN 10:58
PROVIDERS: PCP Nurse Practitioner; Visit Provider Nurse Practitioner Women's Health
DX: Z01.419 Encounter for gynecological examination (general) (routine) without abnormal findings (principal); Z12.4 Encounter for screening for malignant neoplasm of cervix
CPT/HCPCS: 88142; 87624

== ENCOUNTER 2024-04-27 10:52 | Outpatient (RCR) | payer MEDICAID, SELFPAY ==
--- NOTE | 2024-04-27 11:00 | HOLTER_ITS ---
APPROVED REPORT Conclusion This is a Holter monitor. Patient was monitored for 1 day and 18 hours Rhythm throughout was sinus with an average heart rate of 81. Minimum was 68, maximum 122 There were no supraventricular dysrhythmias A total of 2 isolated PVCs were seen There was no atrial fibrillation, no high-grade AV block, no pauses greater than 3 seconds Reported symptoms included chest pain which had no correlation to any dysrhythmia
== END 2024-05-04 23:59 | disposition home or self-care (01) ==
LOC: CARDOPNVT 10:52
PROVIDERS: PCP Nurse Practitioner; Visit Provider Internal Medicine Cardiovascular Disease
DX: R94.31 Abnormal electrocardiogram [ECG] [EKG] (principal)
CPT/HCPCS: 93225; 93226

== ENCOUNTER 2024-05-27 02:22 | Outpatient (CLI) | payer MEDICAID, SELFPAY ==
--- NOTE | 2024-05-27 06:30 | DI.MAMMO_ITS ---
Exam(s) MAMMO SCREENING EXAM: MAMMO SCREENING CLINICAL HISTORY: screening,Z12.39. TECHNIQUE: Bilateral full field digital CC and MLO mammographic images were obtained with 3D tomosyn thesis and utilizing computer aided detection (CAD). COMPARISON: Prior mammograms were reviewed. FINDINGS: There is a new nodule the left breast located inferolaterally which is quite superficial and probably represents a skin mole. This, however, was not evident on prior mammograms. There is a E inferiorly located nodule in the right breast which may also be a skin mole. This is un changed from 2022 but was not evident on the 2021 study. There are no new spiculated masses nor malignant appearing microcalcification groups. There is no significant architectural distortion nor skin thickening-retraction. IMPRESSION: Bilateral findings as above. These may represent skin moles. Recommend repeat views with bilateral skin mole marker in place. BI-RADS Category 0 - Incomplete: Need additional imaging evaluation Breast Density - Category B - Scattered areas of fibroglandular density Breast density Category C or D implies that the patient has dense breast tissue. Dense breast tissue can make it harder to find cancer on a mammogram. Dense breast tissue is also associated with an incr eased risk of breast cancer. This information about the result of the mammogram report was provided to the patient to raise their awareness. Use this report when you speak with the patient about their risks for breast cancer, which includes their family history. At that time, you may recommend additional screening tests (Ultrasoun d or MRI) as these tests may add significant information. A negative radiographic report should not delay biopsy if a dominant or clinically suspicious mass is present. Up to ten percent of cancers are not identified on mammography. A negative report may reinforce clinical impression. Adenosis and dense breasts may obscure an underlying neoplasm. False positive reports average 6 to 10%. Patient will receive a letter notifying them of these results.
== END 2024-05-27 02:42 ==
LOC: DI 02:22
PROVIDERS: PCP Nurse Practitioner; Visit Provider Nurse Practitioner
DX: Z12.31 Encounter for screening mammogram for malignant neoplasm of breast (principal); D22.5 Melanocytic nevi of trunk
CPT/HCPCS: 77063; 77067

== ENCOUNTER 2024-10-06 10:50 | Outpatient (REF) | payer MEDICAID, SELFPAY ==
[2024-10-06 15:53] LABS: Abs Immature Grans 0.03 10^3/uL (0.0-0.06); Absolute Basophil Count 0.07 10^3/uL (0.0-0.2); Absolute Eosinophil Count 0.19 10^3/uL (0.0-0.7); Absolute Lymphocyte Count 1.82 10^3/uL (1.2-3.4); Absolute Monocyte Count 0.53 10^3/uL (0.1-0.8); Absolute Neutrophil Count 5.38 10^3/uL (1.2-6.7); Basophils % 0.9 %; Eosinophils % 2.4 %; HCT 40.1 % (36.0-46.0); Immature Grans % 0.4 %; Lymphocytes % 22.7 %; MCH 28.3 pg (27.0-33.0); MCHC 32.4 % (32.0-36.0); MCV 87 fL (80-95); MPV 10.6 fL (8.0-11.0); Monocytes % 6.6 %; Platelet Count 307 10^3/uL (130-400); RDW 12.2 % (11.7-14.6); RDW-SD 39.2 fL; WBC 8.02 10^3/uL (4.4-10.8)
[2024-10-06 16:24] LABS: ALT 20 U/L (14-59); AST 16 U/L (15-37); Alkaline Phosphatase 72 U/L (46-116); Anion Gap 8.1 mmol/L (3-11); BUN 10 mg/dL (7-18); Bilirubin, Total 0.38 mg/dL (0.2-1.0); CO2 26.9 mmol/L (21.0-32.0); CREATININE 0.8 mg/dL (0.55-1.02); Calcium 9.3 mg/dL (8.5-10.1); Chloride 106 mmol/L (98-107); Estimated GFR 94.28 (mL/min/1.73m2); Glucose 91 mg/dL (74-106); Sodium 141 mmol/L (136-145); TSH (W/Ref FT4) 1.55 uIU/mL (0.36-3.74); Total Protein 7.9 g/dL (6.4-8.2)
== END 2024-10-06 10:51 | disposition home or self-care (01) ==
LOC: LBN 10:50
PROVIDERS: PCP Nurse Practitioner; Visit Provider Nurse Practitioner
DX: I10 Essential (primary) hypertension (principal); R42 Dizziness and giddiness; E66.3 Overweight; J45.909 Unspecified asthma, uncomplicated
CPT/HCPCS: 80053; 84443; 85025

== ENCOUNTER 2025-05-12 09:29 | Outpatient (CLI) | payer MEDICAID, SELFPAY ==
--- NOTE | 2025-05-12 09:15 | RT.EKG_ITS ---
APPROVED REPORT Exam: Resting ECG Reason for Exam: recheck Patient Location: O HR:77 bpm ECG Measurements Heart Rate 77 AXIS DC 180 P 54 QRSd 104 QRS 58 QT 382 T 42 QTc 433 Conclusion Sinus rhythm...normal P axis, V-rate 50- 99 Normal Electrocardiogram
== END 2025-05-12 09:30 | disposition home or self-care (01) ==
LOC: DI.KIM 09:36
PROVIDERS: PCP Nurse Practitioner; Visit Provider Family Medicine
DX: R94.31 Abnormal electrocardiogram [ECG] [EKG] (principal)
CPT/HCPCS: 93010

== ENCOUNTER → 2025-06-09 02:24 | Outpatient (CLI) | payer MEDICAID, SELFPAY ==
--- NOTE | 2025-06-09 13:38 | DI.MAMMO_ITS ---
Exam(s) MAMMO SCREENING EXAM: MAMMO SCREENING CLINICAL HISTORY: screening,Z12.39. TECHNIQUE: Bilateral full field digital CC and MLO mammographic images were obtained with 3D tomosynthesis and utilizing computer aided detection (CAD). COMPARISON: Prior mammograms were reviewed. FINDINGS: There has been no significant change in the appearance and distribution of the fibroglandular tissue. No new left breast findings. Right breast skin moles again noted. There are no new spiculated masses nor new malignant appearing microcalcification groups. There is no significant architectural distortion nor skin thickening-retraction. IMPRESSION: Stable benign findings. No radiographic evidence of malignancy. BI-RADS Category 2 - Benign Findings Breast Density - Category B - There are scattered areas of fibroglandular density. Breast density Category C or D implies that the patient has dense breast tissue. Dense breast tissue can make it harder to find cancer on a mammogram. Dense breast tissue is also associated with an increased risk of breast cancer. This information about the result of the mammogram report was provided to the patient to raise their awareness. Use this report when you speak with the patient about their risks for breast cancer, which includes their family history. At that time, you may recommend additional screening tests (Ultrasound or MRI) as these tests may add significant information. A negative radiographic report should not delay biopsy if a dominant or clinically suspicious mass is present. Up to ten percent of cancers are not identified on mammography. A negative report may reinforce clinical impression. Adenosis and dense breasts may obscure an underlying neoplasm. False positive reports average 6 to 10%. Patient will receive a letter notifying them of these results.
== END ==
LOC: DI 02:24
PROVIDERS: PCP Nurse Practitioner; Visit Provider Nurse Practitioner Women's Health
DX: Z12.31 Encounter for screening mammogram for malignant neoplasm of breast (principal); R92.323 Mammographic fibroglandular density, bilateral breasts
CPT/HCPCS: 77063; 77067